=== PATIENT | female | born 1980 | race Caucasian/White ===

== ENCOUNTER 2021-06-24 15:52 | Emergency (ER) | payer OTHER, SELFPAY ==
--- NOTE | 2021-06-24 16:16 | ED.URI ---
HPI - URI/Sore Throat General Chief Complaint: Upper Respiratory Infection Stated Complaint: fever, sore throat Time Seen by Provider: 06/24/21 16:15 Source: patient and RN notes reviewed Mode of arrival: ambulatory Limitations: no limitations History of Present Illness HPI Narrative: Jocelyn is a 40-year-old female patient who ambulated into the [facility]. Patient states she has a 3-day history of sore throat, headache, neck pain, and fatigue. Patient has been using ibuprofen [id number] and drinking Gatorade. Patient states she has had a fever of 101.2 at home. MD elicited complaint: sore throat Related Data Home Medications Medication Instructions Recorded Confirmed clonazepam 1 mg PO BID 06/24/21 06/24/21 cyanocobalamin (vitamin B-12) See Rx Instructions .ROUTE .COMPLEX 06/24/21 06/24/21 mirtazapine 15 mg PO DAILY 06/24/21 06/24/21 Allergies Allergy/AdvReac Type Severity Reaction Status Date / Time acetaminophen AdvReac Nausea and Verified 06/24/21 16:16 [From Darvocet-N] Vomiting propoxyphene AdvReac Nausea and Verified 06/24/21 16:16 [From Darvocet-N] Vomiting Review of Systems Review of Systems: CONSTITUTIONAL: Denies body aches, + fever,denies chills, or sweats + fatigue EYES: Denies visual changes, redness, or discharge. ENT: Denies rhinorrhea, congestion, sore throat, or otalgia. CARDIOVASCULAR: Denies chest pain, palpitations, or edema. RESPIRATORY: Denies cough or dyspnea. GASTROINTESTINAL: Denies abdominal pain, nausea, vomiting, or diarrhea. GENITOURINARY: Denies dysuria or hematuria. SKIN: Denies rash, itching, or wounds. MUSCULOSKELETAL: Denies back pain, joint pain, or myalgia. NEUROLOGIC: Denies headache, numbness, tingling, or weakness. PSYCH: Denies depression or anxiety. All systems reviewed & are unremarkable except as noted in HPI and below Exam Narrative: GENERAL: Well-appearing, well-nourished, and in no acute distress. HEAD: Normocephalic, atraumatic. EYES: EOMI. No redness or drainage. Conjunctivae normal. ENT: Mucous membranes pink and moist. Nares clear. No rhinorrhea. TMs normal bilaterally. Posterior pharynx is erythemic, moderate edema without exudate. . Uvula midline. NECK: Normal AROM. Supple. Anterior cervical lymphadenopathy bilaterally CHEST: No respiratory distress. Clear to auscultation. MUSCULOSKELETAL: No bony tenderness. EXTREMITIES: Normal range of motion. No edema. SKIN: Warm, dry, no rash. Capillary refill normal. Normal skin turgor. NEURO: No focal deficits. Alert and oriented x3. Gait steady. PSYCH: Normal affect. No signs of depression or anxiety. Course Vital Signs Vital signs: Vital Signs Temperature 36.7 C 06/24/21 16:18 Pulse Rate 18 L 06/24/21 16:18 Respiratory Rate 18 06/24/21 16:18 Blood Pressure 113/76 06/24/21 16:18 Pulse Oximetry 100 06/24/21 16:18 Temperature 36.7 C 06/24/21 16:18 Pulse Rate 18 L 06/24/21 16:18 Respiratory Rate 18 06/24/21 16:18 Blood Pressure 113/76 06/24/21 16:18 Pulse Oximetry 100 06/24/21 16:18 Reviewed MDM - URI/Sore Throat MDM Narrative Medical decision making narrative: Viral pharyngitis. Posterior oropharynx is erythemic with moderate edema without exudate. Patient has no other symptoms except fever, headache, and neck pain. Rapid strep is negative. Throat culture was sent to lab. Patient will be notified if 3 days of antibiotics are needed. Patient to follow-up with her primary care physician in 3 to 5 days for continued symptoms. Go to the emergency department immediately for inability to swallow saliva or liquids. Differential Diagnosis Differential diagnosis: Likely upper respiratory infection, sinusitis, viral infection and pharyngitis Medical Records Attestation: I reviewed the patient's medical records. Lab Data Attestation: I reviewed the patient's lab results. Labs: Lab Results 06/24/21 Range/Units 16:15 POC SARS CoV-2 Ag Negative
[2021-06-24 16:18] VITALS: BP 113/76; PULSE 18; RESP 18; TEMP 36.7; O2SAT 100
== END 2021-06-24 16:40 | disposition home or self-care (01) ==
PROVIDERS: Emergency Provider Nurse Practitioner Family
DX: J02.9 Acute pharyngitis, unspecified (principal); Z20.822 Contact with and (suspected) exposure to COVID-19
CPT/HCPCS: 87081; 87426; 87880; 99213; C9803; G0463

== ENCOUNTER 2022-09-01 08:03 | Emergency (ER) | payer OTHER, SELFPAY ==
[2022-09-01 08:11] VITALS: BP 122/77; PULSE 75; RESP 16; TEMP 37.1; O2SAT 100
[2022-09-01 08:16] VITALS: BP 122/77; PULSE 75; RESP 16; TEMP 37.1; O2SAT 100
--- NOTE | 2022-09-01 08:28 | ED.URI ---
HPI - URI/Sore Throat General Chief Complaint: Upper Respiratory Infection Stated Complaint: cold/flu/covid Time Seen by Provider: 09/01/22 08:20 Source: patient and RN notes reviewed Mode of arrival: ambulatory Limitations: no limitations History of Present Illness HPI Narrative: 42-year-old female presented for complaint of headache, body aches, sinus pressure/congestion, cough, fever/chills. onset 2 days ago. Endorses temperature up to 102. Endorses fatigue, slept all day yesterday. She denies shortness of breath, wheezing, vomiting, diarrhea. She is taking Tylenol and ibuprofen for symptoms. Endorses sick contacts. MD elicited complaint: cough Related Data Home Medications Medication Instructions Recorded Confirmed clonazepam 1 mg tablet 1 mg PO BID 06/24/21 09/01/22 cyanocobalamin (vitamin B-12) See Rx Instructions .Route .COMPLEX 06/24/21 09/01/22 1,000 mcg/mL injection solution mirtazapine 15 mg tablet 15 mg PO DAILY 06/24/21 09/01/22 Allergies Allergy/AdvReac Type Severity Reaction Status Date / Time acetaminophen AdvReac Nausea and Verified 06/24/21 16:16 [From Darvocet-N] Vomiting propoxyphene AdvReac Nausea and Verified 06/24/21 16:16 [From Darvocet-N] Vomiting Review of Systems Review of Systems: CONSTITUTIONAL: Endorses malaise, chills, sweats, fever EYES: Denies visual changes, redness, or discharge ENT: Reports rhinorrhea, congestion, sinus pain, sore throat CARDIOVASCULAR: Denies chest pain, palpitations, edema RESPIRATORY: Reports cough, post nasal drainage. Denies dyspnea GASTROINTESTINAL: Denies abdominal pain, vomiting, diarrhea SKIN: Denies rash or itching MUSCULOSKELETAL: Endorses myalgia Exam Narrative: GENERAL: Ill-appearing, nontoxic EYES: PERRLA, conjunctivae clear ENT: Mucous membranes moist. TM pearly shane with dull light reflex bilaterally; no tragal tenderness. Oropharynx normal without lesions or exudate, no drooling, no hoarseness, no trismus, uvula midline. CHEST: Clear to auscultation, breath sounds equal. No wheezing, rhonchi, rales, or stridor. No respiratory distress, speaks in full sentences. HEART: Regular rate and rhythm. No murmur heard. SKIN: Warm, dry, no rash. NEURO: Alert and oriented x3. PSYCH: Normal mood and affect Course Course Emergency Course: Patient is aware of diagnosis, understands and agrees to treatment plan. Anticipatory guidance given. Patient agrees to follow-up as directed and is aware of reasons to seek care at the emergency department. Portions of this record may have been created with voice recognition software Level of Care: Express Care Visit Vital Signs Vital signs: Vital Signs Temperature 98.7 F 09/01/22 08:11 Pulse Rate 75 09/01/22 08:11 Respiratory Rate 16 09/01/22 08:11 Blood Pressure 122/77 09/01/22 08:11 Pulse Oximetry 100 09/01/22 08:11 Oxygen Delivery Room Air 09/01/22 08:11 Temperature 98.7 F 09/01/22 08:16 Pulse Rate 75 09/01/22 08:16 Respiratory Rate 16 09/01/22 08:16 Blood Pressure 122/77 09/01/22 08:16 Pulse Oximetry 100 09/01/22 08:16 Oxygen Delivery Room Air 09/01/22 08:16 reviewed MDM - URI/Sore Throat MDM Narrative Medical decision making narrative: result of strep covid and flu reviewed with pt. Advised supportive measures and signs/symptoms to go to the ER. Pt is appropriate for outpt treatment and f/u. Differential Diagnosis Differential diagnosis: Likely upper respiratory infection, sinusitis and viral infection Discharge Plan Discharge Clinical Impression: Viral infection Patient Disposition: Home, Self-Care Condition: Stable Instructions: Viral Syndrome (ED) Additional Instructions: Flu, COVID, and Rapid strep swab were negative today You will be notified in a few days if the culture comes back positive for strep, and appropriate antibiotics will be called in at that time. if symptoms are due to a viral illness, it is not
== END 2022-09-01 08:58 | disposition home or self-care (01) ==
PROVIDERS: Emergency Provider Nurse Practitioner Family
DX: B34.9 Viral infection, unspecified (principal); Z20.822 Contact with and (suspected) exposure to COVID-19
CPT/HCPCS: 87081; 87426; 87804; 87880; 99213; C9803; G0463

== ENCOUNTER 2024-02-22 17:45 | Emergency (ER) | payer OTHER, SELFPAY ==
[2024-02-22 17:56] VITALS: BP 119/80; PULSE 91; RESP 20; TEMP 36.6; O2SAT 99
--- NOTE | 2024-02-22 18:13 | ED.FEMALEGU ---
HPI - Female Genitourinary General Chief complaint: Urogenital-Female Stated complaint: Poss UTI Source: patient and RN notes reviewed Mode of arrival: ambulatory Limitations: no limitations History of Present Illness HPI Narrative: 43 y/o female presented for c/o burning with urination, frequency, urgency, blood in urine, and voiding small amounts. States she has constant bladder pressure and spasm sensation. Onset 2 days. Took AZO, drinking cranberry juice, and increased water intake. denies nausea, vomiting, abdominal pain, flank pain, constipation, diarrhea, fevers or chills. Related Data Allergies Allergy/AdvReac Type Severity Reaction Status Date / Time acetaminophen AdvReac Nausea and Verified 02/22/24 17:55 [From Darvocet-N] Vomiting propoxyphene AdvReac Nausea and Verified 02/22/24 17:55 [From Darvocet-N] Vomiting Review of Systems Review of Systems: CONSTITUTIONAL: Denies body aches, fever, chills, or sweats. CARDIOVASCULAR: Denies chest pain, palpitations, or edema. RESPIRATORY: Denies cough or dyspnea. GASTROINTESTINAL: Denies abdominal pain, nausea, vomiting, or diarrhea. GENITOURINARY: Reports dysuria, frequency, urgency, hematuria, denies flank pain SKIN: Denies rash, itching, or wounds. MUSCULOSKELETAL: Denies back pain or myalgia. [facility] Surgical History Surgical History (Updated 02/22/24 @ 18:24 by Kyra Sanchez, [employer]) History of hysterectomy Comments At time of signature, I have reviewed and agree with nursing past medical, surgical, social and family history unless otherwise noted. Please see nursing chart for further information. There is no relevant family history pertinent to the presenting complaint Exam Narrative: GENERAL: mildly ill-appearing; appears in some discomfort ENT: Mucous membranes pink and moist. NECK: Normal AROM. Supple. CHEST: No respiratory distress. Clear to auscultation. HEART: Regular rate and rhythm. ABDOMEN: Soft, nondistended, normal active bowel sounds. Mild suprapubic tenderness with palpation. No CVA tenderness SKIN: Warm, dry, no rash. NEURO: No focal deficits. Alert and oriented x3. Gait steady. PSYCH: Normal affect. Course Course Emergency Course: Patient is aware of diagnosis, understands and agrees to treatment plan. Anticipatory guidance given. Patient agrees to follow-up as directed and is aware of reasons to seek care at the emergency department. Portions of this record may have been created with voice recognition software Level of Care: Express Care Visit Vital Signs Vital signs: Vital Signs Temperature 97.8 F 02/22/24 17:56 Pulse Rate 91 02/22/24 17:56 Respiratory Rate 20 02/22/24 17:56 Blood Pressure 119/80 02/22/24 17:56 Pulse Oximetry 99 02/22/24 17:56 Oxygen Delivery Room Air 02/22/24 17:56 Temperature 97.8 F 02/22/24 17:56 Pulse Rate 91 02/22/24 17:56 Respiratory Rate 20 02/22/24 17:56 Blood Pressure 119/80 02/22/24 17:56 Pulse Oximetry 99 02/22/24 17:56 Oxygen Delivery Room Air 02/22/24 17:56 Reviewed MDM - Female Genitourinary MDM Narrative Medical decision making narrative: Discussed physical exam findings and urine dip result. Will culture.. Advised supportive measures and signs/symptoms to go to the ER. Pt is appropriate for outpt treatment and f/u. Differential Diagnosis Differential diagnosis: Likely urinary tract infection, cystitis and other Discharge Plan Discharge Clinical Impression: Urinary tract infection Patient Disposition: Home, Self-Care Condition: Stable Instructions: Antibiotic Form, Urinary Tract Infection in Women (ED) Additional Instructions: Take the antibiotic as prescribed The urine will be sent of for a culture to identify what type of bacteria is causing your infection. If the culture shows that the antibiotic will not get rid of your infection, you will be notified and a new antibiotic will be called in for
[2024-02-22 18:24] LABS: EDUAAPPEAR Cloudy; EDUABILI 2+; EDUABLOOD 3+; EDUACOLOR1 Orange; EDUAGLUCOSE 1+; EDUAKETONE 1+; EDUALEUKO 3+; EDUANITRATE Positive; EDUAPH 6.5; EDUAPROTEIN 3+
== END 2024-02-22 18:28 | disposition home or self-care (01) ==
PROVIDERS: Emergency Provider Nurse Practitioner Family
DX: N39.0 Urinary tract infection, site not specified (principal)
CPT/HCPCS: 81003; 87086; 99213; G0463

== ENCOUNTER 2024-05-17 18:27 | Emergency (ER) | payer OTHER, SELFPAY ==
[2024-05-17 18:31] VITALS: BP 113/70; PULSE 86; RESP 16; TEMP 36.8; O2SAT 99
--- NOTE | 2024-05-17 18:48 | ED.URI ---
HPI - URI/Sore Throat General Chief Complaint: Upper Respiratory Infection Stated Complaint: poss sinus infection Time Seen by Provider: 05/17/24 18:48 Source: patient Mode of arrival: ambulatory Limitations: no limitations History of Present Illness HPI Narrative: 43-year-old female presents with complaint of sinus pressure, sinus headaches, nasal congestion, postnasal drainage for approximately 12 days. Reports fatigue, low-grade fever for the past 2 days. Patient concerned for bacterial sinus infection. All systems reviewed and negative except as noted above. Related Data Home Medications Medication Instructions Recorded Confirmed clonazepam 1 mg tablet mg 05/17/24 cyanocobalamin (vitamin B-12) mcg 05/17/24 1,000 mcg/mL injection solution mirtazapine 15 mg tablet mg 05/17/24 Allergies Allergy/AdvReac Type Severity Reaction Status Date / Time acetaminophen AdvReac Nausea and Verified 05/17/24 18:39 [From Darvocet-N] Vomiting propoxyphene AdvReac Nausea and Verified 05/17/24 18:39 [From Darvocet-N] Vomiting Review of Systems Review of Systems: CONSTITUTIONAL: Denies fever, chills, or sweats. EYES: Denies visual changes, redness, or discharge. ENT: Reports rhinorrhea, congestion. Denies sore throat, or otalgia. CARDIOVASCULAR: Denies chest pain, palpitations, or edema. RESPIRATORY: Denies cough or dyspnea. GASTROINTESTINAL: Denies abdominal pain, nausea, vomiting, or diarrhea. GENITOURINARY: Denies dysuria or hematuria. SKIN: Denies rash or itching. MUSCULOSKELETAL: Denies back pain, joint pain, or myalgia. NEUROLOGIC: Denies headache, numbness, or weakness. PSYCHIATRIC: Denies anxiety or depression. All other systems reviewed are negative, except as documented in HPI. PMFSH Surgical History Surgical History (Updated 02/22/24 @ 18:24 by Kyra Sanchez APRN) History of hysterectomy Comments At time of signature, agree with nursing past medical, surgical, social and family history. There is no relevant family history pertinent to the presenting complaint. Exam Narrative: GENERAL: This is a well-nourished, well-developed patient, in no apparent distress. HEAD: normocephalic, atraumatic. EYES: PERRL. Sclera clear/white. Vision is grossly intact. EARS: External ears normal, auditory canals clear and without drainage, TMs normal without perforation. Hearing grossly intact. NOSE: External nose normal with purulent nasal drainage, moderate congestion, erythema and swelling to bilateral nares. Bilateral frontal, maxillary and ethmoid sinus tenderness on palpation. THROAT: Mucous membranes moist, posterior pharynx clear. NECK: Neck supple, non-tender without lymphadenopathy, masses or thyromegaly. CARDIOVASCULAR: Regular rate and rhythm without murmurs, gallops, or rubs. RESPIRATORY: Clear to auscultation. Breath sounds equal bilaterally. No wheezes, rales, or rhonchi. SKIN: warm, Dry, intact with no suspicious lesions or rash, good texture and turgor. NEURO: awake, alert, and oriented to person, place and time. There were no obvious focal neurologic abnormalities. EXTREMITIES: No joint tenderness, effusion, or edema noted. Course Course Level of Care: Express Care Visit Vital Signs Vital signs: Vital Signs Temperature 36.8 C 05/17/24 18:31 Pulse Rate 86 05/17/24 18:31 Respiratory Rate 16 05/17/24 18:31 Blood Pressure 113/70 05/17/24 18:31 Pulse Oximetry 99 05/17/24 18:31 Oxygen Delivery Room Air 05/17/24 18:31 Temperature 36.8 C 05/17/24 18:31 Pulse Rate 86 05/17/24 18:31 Respiratory Rate 16 05/17/24 18:31 Blood Pressure 113/70 05/17/24 18:31 Pulse Oximetry 99 05/17/24 18:31 Oxygen Delivery Room Air 05/17/24 18:31 Reviewed MDM - URI/Sore Throat MDM Narrative Medical decision making narrative: will treat patient for bacterial sinusitis due to duration of symptoms and exam findings. Patient is aware of diagno
== END 2024-05-17 19:00 | disposition home or self-care (01) ==
PROVIDERS: Emergency Provider Nurse Practitioner Family
DX: J01.90 Acute sinusitis, unspecified (principal)
CPT/HCPCS: 99213; G0463

== ENCOUNTER 2024-06-13 14:35 | Emergency (ER) | payer OTHER, SELFPAY ==
[2024-06-13 14:50] VITALS: BP 111/71; PULSE 83; RESP 20; TEMP 37.1; O2SAT 97
[2024-06-13 16:05] LABS: EDSTREPNEGPOS1 Negative (Negative)
--- NOTE | 2024-06-13 21:56 | ED.URI ---
HPI - URI/Sore Throat General Chief Complaint: Upper Respiratory Infection Stated Complaint: fever/chills/nausea/throat Time Seen by Provider: 06/13/24 14:54 Source: patient, RN notes reviewed and old records reviewed Mode of arrival: ambulatory Limitations: no limitations History of Present Illness HPI Narrative: 43-year-old female to Express Care with complaint of fever up to 100.8?, sore throat, lethargy, nausea for 3 days. Patient has attempted to treat at home with [place] cold and flu as well as ibuprofen. Patient denies shortness of breath, difficulty swallowing, vomiting, diarrhea, urinary changes, appetite changes, known sick exposure , pertinent medical history. Patient able to tolerate fluids by mouth. Patient resting in exam room in no acute distress. Respirations even and nonlabored. Patient able to speak in complete sentences without difficulty. Related Data Allergies Allergy/AdvReac Type Severity Reaction Status Date / Time acetaminophen AdvReac Nausea and Verified 06/13/24 15:04 [From Darvocet-N] Vomiting propoxyphene AdvReac Nausea and Verified 06/13/24 15:04 [From Darvocet-N] Vomiting Review of Systems Review of Systems: All systems reviewed & are unremarkable except as noted in HPI and below Constitutional: Constitutional: Reports as per HPI, Reports fatigue and Reports fever(s) Eyes: Eyes: Reports no additional eye complaints ENT: Reports as per HPI and Reports sore throat Cardiovascular: Cardiovascular: Reports no additional cardiovascular complaints, Denies chest pain and Denies dyspnea Respiratory: Respiratory: Reports no additional respiratory complaints, Denies cough and Denies dyspnea Musculoskeletal: Musculoskeletal: Reports no additional musculoskeletal complaints Neurologic: Reports system reviewed and no additional complaints, except as documented Psychiatric: Psychiatric: Reports no additional psychiatric complaints PMFSH Surgical History Surgical History History of hysterectomy Comments At the time of my signature, I reviewed and agree with the nursing past medical, surgical, social, and family history. There is no relevant family history pertinent to the patient complaint. Exam Const: General: cooperative, healthy appearing, no acute distress, well developed, alert, tired appearing, well groomed and well nourished Nutritional Appearance: well nourished Orientation/consciousness: patient oriented x3 Limitations: no limitations HENMT: Head: normal to inspection Ears: external ears normal Face/Nose/Sinus: Normal external nose present, Normal nares present, normal facial exam, No erythema and No edema Face and sinus: normal facial exam, no erythema and no edema Mouth: Yes Normal oral and palatal mucosa present Throat: posterior oropharynx abnormal erythema Eyes: General: appearance normal, both eyes and all related structures Neck: Neck: normal visual inspection, full ROM and no meningeal signs Lymphatic: no lymphadenopathy noted and no lymphedema noted Chest: Chest palpation & inspection: normal inspection of the chest Resp: Effort & Inspection: normal respiratory effort and able to speak in complete sentences Auscultation: clear to auscultation bilaterally Cardio: Jugular venous distension: no JVD Rate: regular rate Rhythm: regular rhythm Back/Spine/Pelvis: Cervical Spine: cervical ROM normal Skin: General skin exam: normal color, no rashes or lesions noted and turgor normal Neuro: General: patient oriented x3, gait normal, moves all extremities and no meningeal signs Speech: normal speech Gait exam (Neuro): Normal gait present Extrem: General: normal to inspection, full ROM and capillary refill normal Psych: Appearance: grossly normal and well kempt Course Course Emergency Course: Some parts of this dictation were generated by voice recognition software and may contain typographical and/or grammatical inaccuracies. Level of Care: Express Care Visit Vital Signs Vital signs: Vital Signs Temperature 37.1 C 06/13/24 14:50 Pulse Rate 83 06/13/24 14:50 Respiratory Rate 20 06/13/24 14:50 Blood Pressure 111/71 06/13/24 14:50 Pulse Oximetry 97 06/13/24 14:50 Oxygen Delivery Room Air 06/13/24 14:50 Temperature 37.1 C 06/13/24 14:50 Pulse Rate 83 06/13/24 14:50 Respiratory Rate 20 06/13/24 14:50 Blood Pressure 111/71 06/13/24 14:50 Pulse Oximetry 97 06/13/24 14:50 Oxygen Delivery Room Air 06/13/24 14:50 reviewed MDM - URI/Sore Throat MDM Narrative Medical decision making narrative: 43-year-old female to Express Care with complaint of fever up to 100.8?, sore throat, lethargy, nausea for 3 days. Patient has attempted to treat at home with [place] cold and flu as well as ibuprofen. Patient denies shortness of breath, difficulty swallowing, vomiting, diarrhea, urinary changes, appetite changes, known sick exposure , pertinent medical history. Patient able to tolerate fluids by mouth. Patient resting in exam room in no acute distress. Respirations even and nonlabored. Patient able to speak in complete sentences without difficulty. On exam, posterior oropharynx erythematous. Exam otherwise unremarkable. Patient tested negative for strep in clinic. Culture sent. Patient is sitting comfortably in exam room nontoxic in appearance. Patient appropriate for outpatient treatment and follow-up. Discharge instructions reviewed with patient, as well as provided in writing per nursing staff. The instructions also include specific and strict return/GO TO THE ER as well as f/u information. All questions have been answered, and the patient deny any further questions with discharge and discharge plan. Some parts of this dictation were generated by voice recognition software and may contain typographical and/or grammatical inaccuracies. Differential Diagnosis Differential diagnosis: Likely upper respiratory infection, croup, otitis media, sinusitis, viral infection, bronchitis, influenza and pharyngitis Lab Data Labs: Lab Results 06/13/24 Range/Units 14:55 POC Grp A Strep Screen Negative (Negative) Discharge Plan Discharge Clinical Impression: Viral infection Patient Disposition: Home, Self-Care Condition: Stable Instructions: Viral Syndrome (ED) Additional Instructions: Your rapid strep swab was negative today at [facility]. A throat culture will be sent to the laboratory for further testing. If the test is positive, you will receive a phone call within 48 hours and an appropriate antibiotic will be initiated at that time. Your Covid test is also pending can take up to 72 hours. Your symptoms are likely due to a viral illness, which is not treated with antibiotics. Viral symptoms can be present for up to a few weeks. -Alternate Tylenol and Motrin per package directions for fever or pain. -Antihistamine medication such as Benadryl at night and Zyrtec/Claritin/Leslee during the day can help improve symptoms. -Use Flonase twice a day for 5 days then daily to help reduce the inflammation and dry up your sinuses. -You can also use Sudafed or Mucinex. Be sure to drink plenty of water with these medications at least 8 ounces with every dose and it is important to drink 8 to 10 glasses of water per day. Water is a natural decongestant -Eat and drink things that are easy to swallow, like tea or soup, or popsicles. -Oral rinses such as: Salt water gargles and/or may use topical anesthetic (eg. Chloraseptic spray) or lozenges to relieve dryness or throat pain). -Frequent hand washing or hand talent acquisition consultant is one of the best ways to prevent spread of infection. -Using a vaporizer or humidifier at night will also help thin secretions and help with coughing up phlegm. -Follow up with primary care provider in 2-3 days if condition is not improving; or seek ER visit if you have trouble breathing, cannot drink enough fluids, have muffled voice, difficulty opening your mouth, or severe swelling. Prescriptions: No Action fluticasone propionate [Flonase Allergy Relief] 50 mcg/actuation spray,suspension 1 spray intranasal BID Qty: 16 0RF Rx Instructions: administer into each nostril Follow-up/Referrals: PHYSICIAN NOT ON STAFF,NONSTAFF [Primary Care Provider] - Stand Alone Forms: Work/School Release IP
== END 2024-06-13 16:05 | disposition home or self-care (01) ==
PROVIDERS: Emergency Provider Nurse Practitioner Family
DX: B34.9 Viral infection, unspecified (principal)
CPT/HCPCS: 87081; 87880; 99213; G0463

== ENCOUNTER 2024-07-11 15:34 | Emergency (ER) | payer OTHER, SELFPAY ==
[2024-07-11 15:45] VITALS: BP 137/76; PULSE 72; RESP 16; TEMP 36.8; O2SAT 100
--- NOTE | 2024-07-11 16:41 | ED.URI ---
HPI - URI/Sore Throat General Chief Complaint: Upper Respiratory Infection Stated Complaint: Congestion Time Seen by Provider: 07/11/24 16:42 Source: patient, RN notes reviewed and old records reviewed Mode of arrival: ambulatory Limitations: no limitations History of Present Illness HPI Narrative: 43-year-old female to Express Care with complaint of sinus pressure and discomfort for 2 weeks. Patient states it started to get better 4 days ago then became acutely worse 2 days ago. Patient has attempted to treat with a variety of gwga-ewa-nowhkkx medications with little relief. Patient able to tolerate fluids by mouth. Patient resting comfortably in exam room in no acute distress. Respirations even and nonlabored. Related Data Home Medications Medication Instructions Recorded Confirmed cyanocobalamin (vitamin B-12) mcg 07/11/24 1,000 mcg/mL injection solution Allergies Allergy/AdvReac Type Severity Reaction Status Date / Time acetaminophen AdvReac Nausea and Verified 06/13/24 15:04 [From Darvocet-N] Vomiting propoxyphene AdvReac Nausea and Verified 06/13/24 15:04 [From Darvocet-N] Vomiting Review of Systems Review of Systems: All systems reviewed & are unremarkable except as noted in HPI and below Constitutional: Constitutional: Reports no additional constitutional complaints Eyes: Eyes: Reports no additional eye complaints ENT: Reports as per HPI, Reports nasal congestion, Reports sinus pain and Reports sinus pressure Cardiovascular: Cardiovascular: Reports no additional cardiovascular complaints, Denies chest pain and Denies dyspnea Respiratory: Respiratory: Reports no additional respiratory complaints, Denies cough and Denies dyspnea Musculoskeletal: Musculoskeletal: Reports no additional musculoskeletal complaints Neurologic: Reports system reviewed and no additional complaints, except as documented Psychiatric: Psychiatric: Reports no additional psychiatric complaints PMFSH Surgical History Surgical History History of hysterectomy Comments At the time of my signature, I reviewed and agree with the nursing past medical, surgical, social, and family history. There is no relevant family history pertinent to the patient complaint. Exam Const: General: cooperative, no acute distress, alert, tired appearing and well nourished Nutritional Appearance: well nourished Orientation/consciousness: patient oriented x3 Limitations: no limitations HENMT: Head: normal to inspection Ears: external ears normal and TM abnormal with fluid behind the TM bilateral Face/Nose/Sinus: Normal external nose present, Normal nares present, normal facial exam, No erythema, No edema and sinus tenderness Face and sinus: normal facial exam, no erythema and no edema Mouth: Yes Normal oral and palatal mucosa present Throat: postnasal drainage ( Purulent) Eyes: General: appearance normal, both eyes and all related structures Neck: Neck: normal visual inspection, full ROM and no meningeal signs Lymphatic: no lymphadenopathy noted and no lymphedema noted Chest: Chest palpation & inspection: normal inspection of the chest Resp: Effort & Inspection: normal respiratory effort and able to speak in complete sentences Auscultation: clear to auscultation bilaterally Cardio: Jugular venous distension: no JVD Rate: regular rate Rhythm: regular rhythm Back/Spine/Pelvis: Cervical Spine: cervical ROM normal Skin: General skin exam: normal color, no rashes or lesions noted and turgor normal Neuro: General: patient oriented x3, gait normal, moves all extremities and no meningeal signs Speech: normal speech Gait exam (Neuro): Normal gait present Extrem: General: normal to inspection, full ROM and capillary refill normal Psych: Appearance: grossly normal and well kempt Course Course Emergency Course: Some parts of this dictation were generated by voice recognition software and may contain typographical and/or grammatical inaccuracies. Level of Care: Express Care Visit Vital Signs Vital signs: Vital Signs Temperature 36.8 C 07/11/24 15:45 Pulse Rate 72 07/11/24 15:45 Respiratory Rate 16 07/11/24 15:45 Blood Pressure 137/76 07/11/24 15:45 Pulse Oximetry 100 07/11/24 15:45 Oxygen Delivery Room Air 07/11/24 15:45 Temperature 36.8 C 07/11/24 15:45 Pulse Rate 72 07/11/24 15:45 Respiratory Rate 16 07/11/24 15:45 Blood Pressure 137/76 07/11/24 15:45 Pulse Oximetry 100 07/11/24 15:45 Oxygen Delivery Room Air 07/11/24 15:45 reviewed MDM - URI/Sore Throat MDM Narrative Medical decision making narrative: 43-year-old female to Express Care with complaint of sinus pressure and discomfort for 2 weeks. Patient states it started to get better 4 days ago then became acutely worse 2 days ago. Patient has attempted to treat with a variety of zhao-[id number] medications with little relief. Patient able to tolerate fluids by mouth. Patient resting comfortably in exam room in no acute distress. Respirations even and nonlabored. on exam, posterior oropharynx with purulent drainage. Bilateral TMs with purulent fluid. Sinus tenderness present. Patient is sitting comfortably in exam room nontoxic in appearance. Patient appropriate for outpatient treatment and follow-up. Discharge instructions reviewed with patient, as well as provided in writing per nursing staff. The instructions also include specific and strict return/GO TO THE ER as well as f/u information. All questions have been answered, and the patient deny any further questions with discharge and discharge plan. Some parts of this dictation were generated by voice recognition software and may contain typographical and/or grammatical inaccuracies. Differential Diagnosis Differential diagnosis: Likely upper respiratory infection, croup, otitis media, sinusitis, viral infection, bronchitis, influenza and pharyngitis Discharge Plan Discharge Clinical Impression: Bacterial sinusitis Patient Disposition: Home, Self-Care Condition: Stable Instructions: Sinusitis (ED) Additional Instructions: -Alternate Tylenol and Motrin per package directions for fever or pain. -Antihistamine medication such as Benadryl at night and Zyrtec/Claritin/Leslee during the day can help improve symptoms. -Use Flonase twice a day for 5 days then daily to help reduce the inflammation and dry up your sinuses. -You can also use Sudafed or Mucinex. Be sure to drink plenty of water with these medications at least 8 ounces with every dose and it is important to drink 8 to 10 glasses of water per day. Water is a natural decongestant -Eat and drink things that are easy to swallow, like tea or soup, or popsicles. -Oral rinses such as: Salt water gargles and/or may use topical anesthetic (eg. Chloraseptic spray) or lozenges to relieve dryness or throat pain). -Frequent hand washing or hand line installation supervisor is one of the best ways to prevent spread of infection. -Using a vaporizer or humidifier at night will also help thin secretions and help with coughing up phlegm. -Follow up with primary care provider in 2-3 days if condition is not improving; or seek ER visit if you have trouble breathing, cannot drink enough fluids, have muffled voice, difficulty opening your mouth, or severe swelling. Prescriptions: New azithromycin 250 mg tablet 250 mg PO DAILY Qty: 6 0RF Rx Instructions: 250 mg orally. Take TWO tablets today, then one tablet daily for 4 days. prednisone 20 mg tablet See Rx Instructions .ROUTE .COMPLEX Qty: 9 0RF Rx Instructions: Take 40mg x3 days, 20mg x3 days No Action cyanocobalamin (vitamin B-12) 1,000 mcg/mL solution Follow-up/Referrals: Olivia,MD Paola [Primary Care Provider] -
== END 2024-07-11 16:55 | disposition home or self-care (01) ==
PROVIDERS: Emergency Provider Nurse Practitioner Family; PCP Family Medicine
DX: J32.9 Chronic sinusitis, unspecified (principal)
CPT/HCPCS: 99213; G0463

== ENCOUNTER 2024-09-06 19:27 | Emergency (ER) | payer OTHER, SELFPAY ==
[2024-09-06 19:33] VITALS: BP 113/76; PULSE 77; RESP 16; TEMP 36.6; O2SAT 100
--- NOTE | 2024-09-06 20:07 | ED.GENADULT ---
HPI - General Adult General Chief complaint: Upper Respiratory Infection Stated complaint: Fever /Sore Throat Source: patient Mode of arrival: ambulatory Limitations: no limitations History of Present Illness HPI narrative: Patient presents for evaluation of sore throat. Symptom onset this morning. She feels like she is swallowing razor blades. She also reports generalized body aches and overall not feeling well. No fever, nausea, vomiting, diarrhea, cough, shortness of breath. Her sons have been sick as of late. She has a history of strep and this feels similar. She does vape from time to time. Related Data Home Medications ?Medication ?Instructions ?Recorded ?Confirmed ?Last Taken ?Type cyanocobalamin (vitamin B-12) mcg 07/11/24 Unknown History 1,000 mcg/mL injection solution Allergies Allergy/AdvReac Type Severity Reaction Status Date / Time acetaminophen (From AdvReac Nausea and Verified 06/13/24 15:04 Darvocet-N) Vomiting propoxyphene (From AdvReac Nausea and Verified 06/13/24 15:04 Darvocet-N) Vomiting Review of Systems Review of Systems: CONSTITUTIONAL: Reports generally not feeling well. Denies fever, chills, or sweats. EYES: Denies visual changes, redness, or discharge. ENT: Reports sore throat. Denies rhinorrhea, congestion, or otalgia. CARDIOVASCULAR: Denies chest pain, palpitations, or edema. RESPIRATORY: Denies cough or dyspnea. GASTROINTESTINAL: Denies abdominal pain, nausea, vomiting, or diarrhea. GENITOURINARY: Denies dysuria or hematuria. SKIN: Denies rash or itching. MUSCULOSKELETAL: Reports generalized body aches NEUROLOGIC: Denies headache, numbness, dizziness, or weakness. PSYCHIATRIC: Denies anxiety or depression. [facility] Past Medical History Medical History No pertinent past medical history Surgical History Surgical History History of hysterectomy Family History Family History Mother Family history non-contributory Social History Social History Smoking status: Current every day smoker Tobacco type: e-cigarettes/vaping Substance use: never Living arrangements: with family Gender identity (if verbalized by the patient): Female Spiritual care concerns: No Exam Narrative: GENERAL: Well-appearing, well-nourished, and in no acute distress. HEAD: Normocephalic, atraumatic. EYES: PERRLA and EOMI. ENT: Nares clear, no rhinorrhea or epistaxis. Mucous membranes moist. Posterior pharyngeal erythema without exudate. Uvula is midline.. Bilateral TMs pearly shane nonbulging NECK: Supple. No adenopathy or masses. No carotid bruits or JVD CHEST: Clear to auscultation. No respiratory distress. No wheezes rales or rhonchi HEART: Regular rate and rhythm. No murmur heard. Normal peripheral pulses. ABDOMEN: Soft, nontender, nondistended, normal active bowel sounds. EXTREMITIES: Normal range of motion. No edema. SKIN: Warm, dry, no rash. NEURO: No focal deficits. Alert and oriented x3. PSYCH: Normal mood and affect. Course Course Emergency Course: This is a 44-year-old female who presented for evaluation of sore throat. She has a history of strep and this feels similar. COVID, strep, influenza were all negative. Through shared decision making opted proceed with antibiotic therapy. Will discharge with Augmentin. Increase hydration. Nrvw-tuv-[id number] agents for symptom management. Follow up with primary provider. Go to the ER for worsening symptoms. Patient in agreement with care Level of Care: Express Care Visit Vital Signs Vital signs: Vital Signs Temperature 36.6 C 09/06/24 19:33 Pulse Rate 77 09/06/24 19:33 Respiratory Rate 16 09/06/24 19:33 Blood Pressure 113/76 09/06/24 19:33 Pulse Oximetry 100 09/06/24 19:33 Oxygen Delivery Room Air 09/06/24 19:33 Temperature 36.6 C 09/06/24 19:33 Pulse Rate 77 09/06/24 19:33 Respiratory Rate 16 09/06/24 19:33 Blood Pressure 113/76 09/06/24 19:33 Pulse Oximetry 100 09/06/24 19:33 Oxygen Delivery Room Air 09/06/24 19:33 Medical Decision Making Vital Signs Vital Signs: Vital Signs Temperature 36.6 C 09/06/24 19:33 Pulse Rate 77 09/06/24 19:33 Respiratory Rate 16 09/06/24 19:33 Blood Pressure 113/76 09/06/24 19:33 Pulse Oximetry 100 09/06/24 19:33 Oxygen Delivery Room Air 09/06/24 19:33 Temperature 36.6 C 09/06/24 19:33 Pulse Rate 77 09/06/24 19:33 Respiratory Rate 16 09/06/24 19:33 Blood Pressure 113/76 09/06/24 19:33 Pulse Oximetry 100 09/06/24 19:33 Oxygen Delivery Room Air 09/06/24 19:33 Lab Data Labs: Lab Results 09/06/24 Range/Units 20:07 POC Influenza A Ag Negative (Negative) POC Influenza B Ag Negative (Negative) POC SARS CoV-2 Ag Negative (Negative) POC Grp A Strep Screen Negative (Negative) Discharge Plan Discharge Clinical Impression: Pharyngitis Patient Disposition: Home, Self-Care Condition: Stable Instructions: Antibiotic Form, Pharyngitis (ED) Patient Language: Guyanese Prescriptions: New amoxicillin-pot clavulanate 875-125 mg tablet 1 tablet PO Q12H Qty: 20 0RF No Action cyanocobalamin (vitamin B-12) 1,000 mcg/mL solution azithromycin 250 mg tablet 250 mg PO DAILY Qty: 6 0RF Rx Instructions: 250 mg orally. Take TWO tablets today, then one tablet daily for 4 days. prednisone 20 mg tablet See Rx Instructions .ROUTE .COMPLEX Qty: 9 0RF Rx Instructions: Take 40mg x3 days, 20mg x3 days Follow-up/Referrals: Paola Villanueva [Other] Stand Alone Forms: Work/School Release IP Time of Disposition: 20:17
[2024-09-06 20:10] LABS: EDCOVIDSCREEN Negative (Negative); EDINFLUASCREEN Negative (Negative); EDINFLUBSCREEN Negative (Negative); EDSTREPNEGPOS1 Negative (Negative)
--- OUTSIDE RECORDS SUMMARY | 2024-09-08 03:34 | XMS_ITS | Clinical Summary ---
Author Organization [facility] Address [address] [place] [id number] Care Team Providers Care Software Developer Mid Level Name Role Phone Paola Baker MD Primary Care Provide r Allergies Active Allergy Reactions Criticality Noted Date Comments Propoxyphene-Acetaminop hen Nausea only,Vomiting Low Reaction: NAUSEA, VOMITING, Oxycodone Vomiting Medium 04/29/2018 Propoxyphene Nausea only,Unknown,Vomitin g Medium 08/05/2019 Medications mirtazapine (REMERON) 15 mg tablet Take 1 tablet (15 mg total) by mouth nightly at bedtime. 08/05/20 20 Active acetaminophen 500 mg capsule Take 2 capsules (1,000 mg total) by mouth every 6 (six) hours as needed for pain for up to 60 doses 60 tablet 08/19/19 23 Active syringe with needle, safety (BD Integra Syringe) 3 mL 25 gauge x 1 syringe USE TO INJECT VITAMIN B12 IN THE MUSCLE DIRECTED 3 each 3 09/14/19 23 Active clonazePAM (KlonoPIN) 1 mg tablet Take 1 tablet (1 mg total) by mouth 2 (two) times a day 03/30/20 23 Active ergocalciferol (VITAMIN D) 50,000 unit capsule Take 1 capsule (50,000 Units total) by mouth once a week 12 capsule 1 06/28/20 23 Active ondansetron ODT (ZOFRAN-ODT) 4 mg disintegrating tablet DISSOLVE 1 TABLET ON THE TONGUE EVERY 8 HOURS NEEDED FOR NAUSEA OR VOMITING 08/18/19 24 Active albuterol HFA (PROVENTIL HFA,VENTOLIN HFA,PROAIR HFA) 90 mcg/actuation inhalerIndications :Viral URI with cough Inhale 2 puffs every 6 (six) hours as needed for wheezing 1 each 08/25/19 24 Active BD Luer-Allan Syringe 3 mL 25 gauge x 1 syringe USE TO INJECT VITAMIN B12 IN THE MUSCLE DIRECTED 3 each 2 02/18/20 24 Active metoprolol XL (TOPROL-XL) 25 mg extended release tablet Take 0.5 tablets (12.5 mg total) by mouth daily 45 tablet 3 03/13/20 24 025 Active cyanocobalamin (Vitamin B-12) 1,000 mcg/mL injection ADMINISTER 1 ML IN THE MUSCLE MONTHLY 3 mL 07/02/20 24 Active valACYclovir (VALTREX) 1 gram tablet TAKE 2 TABLETS(2000 MG) BY MOUTH TWICE DAILY FOR 1 DAY 4 tablet 07/19/20 24 Active amoxicillin 500 mg tablet/capsuleIndi cations:Pharyngiti s, unspecified etiology Take 1 tablet/capsule (500 mg total) by mouth 2 (two) times a day for 10 days 20 tablet/capsu le 07/31/20 24 024 Active Problems Problem Noted Date Diagnosed Date BMI 22.0-22.9, adult 03/13/2024 Tachycardia 03/13/2024 Assessment & Plan (03/13/2024 4:56 PM CDT): New concern Worsening Will get a 48hr holter monitor Will check her electrolytes along with tsh Start metoprolol 12.5mg daily since she is symptomatic F/u in 2 weeks If she is unable to tolerate the metoprolol because of her already borderline blood pressure, will refer to cardiology History of alcohol use disorder 08/25/2022 Assessment & Plan (03/13/2024 4:58 PM CDT): stable Continue with [facility] sob[facility] in group She is doing much better Assessment & Plan (06/29/2023 9:09 AM MANAGER TREASURY): Has not used alcohol since November She has joined a sisters in sob[facility]ety in group She is doing much better Assessment & Plan (12/03/2022 9:32 AM CDT): She is still going to her AA meetings and therapist. She has not had a drink since before she went to the hospital Start naltrexone to help with craving F/u in 3 months Assessment & Plan (09/22/2022 11:49 AM MANAGER TREASURY): She is still going to her AA meetings and therapist. She has not had a drink since before she went to the hospital F/u in 3 months Assessment & Plan (08/25/2022 12:27 PM MANAGER TREASURY): I recommend 1 month off for her to establish with the program and get a few meetings before returning back to her work as her job is a trigger for alcohol use. F/u in 1 month for re-evaluation Perimenopausal 10/30/2021 Assessment & Plan (10/30/2021 5:17 PM CDT): Ordered estradiol level prolactin levels fsh lh Stable continue to monitor Encounter for wellness examination 10/30/2021 Assessment & Plan (03/10/2024 12:38 PM CDT): Labs ordered Pap smear: had a hysterectomy for noncancerous reasons Mammogram up-to-date F/u in 1 year Assessment & Plan (12/03/2022 9:36 AM CDT): Ordered CBC, cmp, lipid, hgb a1c Pap smear has a hysterectomy for noncancerous reasons Mammogram referral F/u in 1 year Assessment & Plan (10/30/2021 5:18 PM CDT): Ordered CBC, cmp, lipid, hgb a1c, HIV, hep c, TSH, and free t4 Pap smear has a hysterectomy F/u in 1 year Personal history of colonic polyps 12/16/2020 Overview (12/16/2020): Repeat colonoscopy in 2 years (December 2022) for polyp surveillance. Paternal uncle had colon cancer diagnosed in his 50s. Two day colonoscopy prep next time or an extra dose of MiraLax and Gatorade prep next time. Absolute anemia 10/11/2020 Overview (10/11/2020): Added automatically from request for surgery [id number] Anemia 09/28/2019 Assessment & Plan (09/28/2019 1:50 PM MANAGER TREASURY): Upper endoscopy with biopsies to check for H pylori and to exclude peptic ulcer disease Check CBC, iron, ferritin, vitamin B12, folate Change in bowel habits 09/28/2019 Assessment & Plan (09/28/2019 2:21 PM MANAGER TREASURY): High-fiber diet daily. Citrucel 1 tablespoonful daily. Stay hydrated Colonoscopy Vitamin B12 deficiency 03/21/2019 Assessment & Plan (03/10/2024 12:37 PM CDT): Continue with b12 injections Assessment & Plan (12/02/2022 7:00 AM CDT): Continue with b12 injections Assessment & Plan (10/30/2021 5:14 PM CDT): Cbc and vitamin b12 ordered today Continue with b12 injections Assessment & Plan (09/28/2019 1:48 PM MANAGER TREASURY): Check vitamin B12 level Family hx of colon cancer requiring screening co lonoscopy 03/21/2019 Vitamin D deficiency 04/29/2018 Assessment & Plan (03/10/2024 12:37 PM CDT): Stable continue to monitor Assessment & Plan (06/29/2023 9:09 AM MANAGER TREASURY): Stable continue to monitor Vitamin d serum ordered Vit d sent to the pharmacy Assessment & Plan (12/02/2022 7:01 AM CDT): Stable continue to monitor Vitamin d serum ordered Assessment & Plan (10/30/2021 5:14 PM CDT): Stable continue to monitor Vitamin d serum ordered Assessment & Plan (09/28/2019 2:30 PM MANAGER TREASURY): Check vitamin-D level Continue Vitamin D supplementation. Excessive and frequent menstruation with regular cycle 03/31/2018 Chronic fatigue 09/03/2017 Chronic midline low back pain 09/03/2017 Myalgia 09/03/2017 Situational anxiety 09/03/2017 Assessment & Plan (10/30/2021 5:16 PM CDT): Controlled given circumstances Continue to monitor Sleep paralysis, recurrent isolated 09/03/2017 Depression 07/05/2017 Assessment & Plan (03/10/2024 12:38 PM CDT): Stable / clinically quiescent. Will continue to monitor. Continue following with psychiatry Assessment & Plan (12/03/2022 9:33 AM CDT): Stable / clinically quiescent. Will continue to monitor. continue mirtazapine 15 mg at night Continue following with psychiatry Chronic tonsillitis 11/27/2016 Lymphadenopathy, cervical 11/27/2016 Recurrent bleeding 11/27/2016 Seasonal allergic rhinitis due to pollen 017 Resolved Problems Problem Noted Date Diagnosed Date Resolved Date Alcohol withdrawal syndrome, uncomplicated 08/17/2022 03/13/2024 Encounters Date Type Department Care Team Description 08/03/2024 Telephone [facility] [place] [address] [place] [phone] Anne Marie Bernal MA 08/01/2024 Telephone [facility] [place] [address] [place] [phone] Caterina Augustin MA 07/31/2024 10:00 PM MANAGER TREASURY - 07/31/2024 11:59 PM MANAGER TREASURY [place] [address] Flu-like symptoms Discharge Disposition: Discharge to home or self care 07/31/2024 4:30 PM MANAGER TREASURY Office Visit [facility] [place] [address] [place] [address] Kathryn Lindsay NP Pharyngitis, unspecified etiology (Primary Dx); Flu-like symptoms from Last 3 Months Immunizations Name Administration Dates Next Due Influenza, Trivalent, IM (MDV) 07/29/2016 Influenza, Trivalent, Preser vative Free, Intramuscular 07/27/2017 Influenza, Unspecified 05/31/2023,2022(Deferred: Patient Refused),04/16/2022,03/16/2022(Deferre d: Patient Refused),04/16/2021,07/29/2016 Pneumococcal Polysaccharide PPV23 09/06/2017 Surgical History Surgery Date Site/Laterality Comments NO PAST SURGERIES DILATION AND CURETTAGE OF UTERUS HYSTERECTOMY WISDOM TOOTH EXTRACTION COLONOSCOPY W/ BIOPSIES ESOPHAGOGASTRODUODENOSCOPY Medical History Medical History Date Comments Known health problems: none PONV (postoperative nausea and vomiting) Irritable bowel syndrome Depression Family History Medical History Relation Name Comments Cancer Father's Brother Colon cancer Father's Brother Relation Name Status Comments Father Alive Father's Brother Mother Alive Social History Tobacco Use Types Packs/Day Years Used Date Smoking Tobacco: Former E-cigarettes Quit: 08/2017 Smokeless Tobacco: Never Tobacco Cessation:Counseling Given: Not Answered Comments:ocassional vaping Alcohol Use Standard Drinks/Week Comments No 0 (1 standard drink = 0.6 oz pur e alcohol) AUDIT-C Answer Date Recorded Q1: How often do you have a drink containing alcohol? Never 06/28/2023 Q2: How many drinks containi ng alcohol do you have on a typical day when you are drinking? Patient does not drink Q3: How often do you have si x or more drinks on one occasion? Never 06/28/2023 PHQ-2 Answer Date Recorded PHQ-2 Total Score (If total score is 3 or more points, staff should administer the PHQ-9) 0 03/13/2024 Comments No Sex and Gender Information Value Date Recorded Sex Assigned at Not on file Legal Sex Female 12:50 AM MANAGER TREASURY Gender Identity Female 07/15/2021 11:49 AM MANAGER TREASURY Sexual Orientation Not on file Obstetrics History Last Filed Vital Signs Vital Sign Reading Time Taken Comments Blood Pressure 128/76 07/31/2024 4:31 PM MANAGER TREASURY Pulse 87 07/31/2024 4:31 PM MANAGER TREASURY Temperature 37.1 ??C (98.7 ??F) 07/31/2024 4:31 PM CS T Respiratory Rate 18 07/31/2024 4:31 PM MANAGER TREASURY Oxygen Saturation 99% 07/31/2024 4:31 PM MANAGER TREASURY Inhaled Oxygen Concentration - - Weight 59 kg (130 lb) 07/31/2024 4:31 PM MANAGER TREASURY Height 162.6 cm (5' 4 ) 07/31/2024 4:31 PM MANAGER TREASURY Body Mass Index 22.31 07/31/2024 4:31 PM MANAGER TREASURY Plan of Treatment Health Maintenance Due Date Last Done Comments DTaP/Tdap/Td Vaccine (1 - Tdap) 1992 Hepatitis B Screening 1999 Covid-19 Vaccine ( season) 2024 04/19/2021, 02/15/2021 Influenza Vaccine (#1) 2024 , 04/16/2022, 04/16/2021, Additional history exists Breast Cancer Screening-Mammogram 11/17/2024 11/18/2023, 12/14/2017, 12/14/2017, Additional history exists Depression Screening 03/13/2025 03/13/2024, 06/28/2023, 09/10/2022, Additional history exists Regular Well Visit/Exam 18-64 03/13/2025 03/13/2024, 12/03/2022, 10/30/2021 Pneumococcal vaccine <65 Aged Out 09/06/2017 No longer eligible based on patient's age to complete this topic Hepatitis C Screening Completed 04/04/2022 HPV Vaccines Aged Out No longer eligi ble based on patient's age to complete this topic Varicella Vaccines Discontinued Procedures Procedure Name Priority Date/Time Associated Diagnosis Comments POCT RAPID STREP Routine 07/31/2024 4:48 PM MANAGER TREASURY Pharyngitis, unspecified etiology COVID-19 POC Routine 07/31/2024 4:48 PM MANAGER TREASURY Flu-like symptoms POCT INFLUENZA A/B Routine 07/31/2024 4: 48 PM MANAGER TREASURY Flu-like symptoms INFLUENZA A/B, RSV, AND COVID-19 PCR Routine 07/31/2024 3:30 PM MANAGER TREASURY Flu-like symptoms DIAGNOSTIC MAMMOGRAM BILATERAL W JORGE Schedule Routine, Read Routine (OP Routine) 11/18/2023 12:48 PM CDT Screening mammogram, encounter for HEPATITIS C ANTIBODY Routine 04/04/2022 8:39 AM CDT Healthcare maintenance from Last 3 Months or Most Recently Relevant to Health Maintenance Results * COVID-19 POC (07/31/2024 4:48 PM MANAGER TREASURY) Pathologist [facility] COVID-19 Ag POC (BD Veritor) Presumptive Negative Presumptive Negative, Invalid [facility] Nasal 07/31/2024 4:48 PM MANAGER TREASURY us Kathryn Lindsay SENIOR INTERNATIONAL TAX MANAGER POINT OF CARE TEST ORDERABLES Fi nal Result [facility] [address] [place] [address] * POCT influenza A/B (07/31/2024 4:48 PM MANAGER TREASURY) [facility] Rapid Influenza A Ag Negative Negative, Invalid Rapid Influenza B Ag Negative Negative, Invalid Nasal 07/31/2024 4:48 PM MANAGER TREASURY us Kathryn Lindsay SENIOR INTERNATIONAL TAX MANAGER POINT OF CARE TEST ORDERABLES Fi nal Result * POCT rapid strep A (07/31/2024 4:48 PM MANAGER TREASURY) Pathologist [facility] Rapid Strep A, POC Negative Negative Swab 07/31/2024 4:48 PM MANAGER TREASURY us Kathryn Lindsay SENIOR INTERNATIONAL TAX MANAGER POINT OF CARE TEST ORDERABLES Fi nal Result * Influenza A/B, RSV, and COVID-19 PCR Nasopharyngeal (07/31/2024 3:30 PM MANAGER TREASURY) COVID-19 RNA Negative Negative Influenza A RNA Negative Negative [facility] Influenza B RNA Negative Negative [facility] RSV RNA Negative Negative [facility] Comment: Interpretive data: Testing performed by [facility]. This test is performed using the [employer] Xpert Xpress CoV-2/Flu/RSV plus assay. This is a multiplex, real-time reverse transcriptase PCR assay intended for the qualitative detection of nucleic acid from SARS-CoV-2, influenza A, influenza B, and respiratory syncytial virus. This assay has been cleared by the [place] Food and Drug administration. The performance characteristics have been verified by the [facility]. ??Results must be considered in the clinical context, and a negative result does not rule out infection. Interpretive Data last revised 2023 Nasopharyngeal 07/31/2024 3: 30 PM MANAGER TREASURY 07/31/2024 10:34 PM MANAGER TREASURY Narrative [facility] - 08/01/2024 12:09 AM MANAGER TREASURY Is the Patient experiencing symptoms consistent with COVID?->Yes Reason for testing?->Symptomatic Is the patient experiencing any symptoms consistent with COVID (eg. Fever, cough, shortness of breath)?->Yes Kathryn Lindsay NP LAB MICROBIOLOGY - GENERAL ORDER [place] Final Result Performing Organization Address City/State/[facility] Co de Phone Number [facility] [address] [address] Department [place] [address] * Diagnostic Mammogram Bilateral W Jorge (11/18/2023 12:48 PM CDT) Anatomical Region Laterality Modality Breast Bilateral Mammography 11/18/2023 2:09 PM CDT Impressions 11/18/2023 2:09 PM CDT Benign cyst left breast in the region of lump. BI-RADS 2 RECOMMENDATIONS: Annual screening mammography. Findings and recommendations were communicated to the patient. Electronically signed by: Tere Hilario M.D. Narrative 11/18/2023 2:09 PM CDT EXAMINATION/TECHNIQUE: Bilateral digital diagnostic mammogram including cad and digital breast tomosynthesis. Ultrasound left breast. HISTORY: Lump left breast COMPARISON: Prior mammograms from 2018 in 2016. FINDINGS: ??The breasts are extremely dense, which lowers the sensitivity of mammography. Left breast: There is obscured mass adjacent to the lump marker at about 2 o'clock position. ??Additional smaller masses noted about 3 to 4 o'clock position in the posterior breast. ??This appears similar to prior mammograms of 2018. ??Ultrasound was done. Ultrasound left breast shows anechoic well-circumscribed benign cyst at 2 o'clock position 3 to 4 cm from nipple measuring up to 1.8 cm in size. ??This is noted in the region of mammographic mass and represents palpable lump. There is additional mass at 3 o'clock position 3 cm from nipple with internal organized debris and posterior acoustic enhancement. ??No internal vascularity noted. ??This measures 7 mm in size and correlates with the mammographically stable masses. ??No suspicious findings noted. Right breast: No suspicious masses, microcalcifications are architectural distortion visualized. us Paola Baker MD IMG MAMMO PROCEDURES Final Result * Hepatitis C antibody (04/04/2022 8:39 AM CDT) Hep C Ab Nonreactive Nonreactive [facility] ([place]) Comment: Interpretive Data Nonreactive: Antibodies to HCV not detected. Does NOT exclude the possibility of recent exposure to HCV. Equivocal: Equivocal for HCV antibodies. Supplemental molecular testing will be automatically performed to determine infection status in accordance with current CDC screening recommendations. ?? Reactive: Positive for HCV antibodies. ??This may represent current or past HCV infection. Supplemental molecular testing will be automatically performed to determine ??current infection status in accordance with current CDC screening recommendations. Interpretive data was last revised on 2019. Testing performed by: [facility], [address] [place] [address], [place]., [address] Blood 04/04/2022 8:39 AM CDT 04/04/2022 11:28 AM CDT us Paola Baker MD LAB MICROBIOLOGY - KeyOwnerAL ORDERABLES Final Result [facility] ([place]) [address] [facility] [place] [address] from Last 3 Months or Most Recently Relevant to Health Maintenance Insurance [facility] Advance Directives For more information, please contact: [phone] * Full Code (Latest Code Status on File) Date Activated Date Inactivated Comments 08/17/2022 12:02 PM 08/19/2022 11:57 PM * Full Code Date Activated Date Inactivated Comments 12/16/2020 2:08 PM 12/16/2020 8:19 PM * Full Code Date Activated Date Inactivated Comments 04/05/2018 12:42 PM 04/06/2018 11:28 AM Care Teams Software Developer Mid Level Relationship Specialty Start Date End Date Paola Baker MD [address] [place] [address] [place] [address] PCP - General Family Medicine 10/30/21
--- OUTSIDE RECORDS SUMMARY | 2024-09-08 03:34 | XMS_ITS | Referral Summary ---
Author Organization [facility] Address [address] [place] [address] Care Team Providers Care Computational Biologist Name Role Phone Paola Baker MD Primary Care Provide r Encounters Date Type Department Care Team Description 08/03/2024 Telephone [facility] [place] [address] [place] [address] Anne Marie Bernal MA 08/01/2024 Telephone [facility] [place] [address] [place] [address] Caterina Augustin MA 07/31/2024 10:00 PM BULLION WEIGHER - 07/31/2024 11:59 PM [facility] WEIGHER Hospital Encounter [address] [address] Flu-like symptoms Discharge Disposition: Discharge to home or self care 07/31/2024 4:30 PM BULLION WEIGHER Office Visit [facility] [place] [address] [place] [address] Kathryn Lindsay NP Pharyngitis, unspecified etiology (Primary Dx); Flu-like symptoms from Last 3 Months Allergies Active Allergy Reactions Criticality Noted Date [...] better Assessment & Plan (06/29/2023 9:09 AM BULLION WEIGHER): Has not used alcohol since November She [...] months Assessment & Plan (09/22/2022 11:49 AM BULLION WEIGHER): She is still going to her AA meetings and therapist. She has not had a drink since before she went to the hospital F/u in 3 months Assessment & Plan (08/25/2022 12:27 PM BULLION WEIGHER): I recommend 1 month off for her [...] (10/11/2020): Added automatically from request for surgery [id number] Anemia 09/28/2019 Assessment & Plan (09/28/2019 1:50 PM BULLION WEIGHER): Upper endoscopy with biopsies to check for H pylori and to exclude peptic ulcer disease Check CBC, iron, ferritin, vitamin B12, folate Change in bowel habits 09/28/2019 Assessment & Plan (09/28/2019 2:21 PM BULLION WEIGHER): High-fiber diet daily. Citrucel 1 tablespoonful daily. Stay hydrated Colonoscopy Vitamin B12 deficiency 03/21/2019 Assessment & Plan (03/10/2024 12:37 PM CDT): Continue with b12 injections Assessment & Plan (12/02/2022 7:00 AM CDT): Continue with b12 injections Assessment & Plan (10/30/2021 5:14 PM CDT): Cbc and vitamin b12 ordered today Continue with b12 injections Assessment & Plan (09/28/2019 1:48 PM BULLION WEIGHER): Check vitamin B12 level Family hx of colon cancer requiring screening co lonoscopy 03/21/2019 Vitamin D deficiency 04/29/2018 Assessment & Plan (03/10/2024 12:37 PM CDT): Stable continue to monitor Assessment & Plan (06/29/2023 9:09 AM BULLION WEIGHER): Stable continue to monitor Vitamin d serum ordered Vit d sent to the pharmacy Assessment & Plan (12/02/2022 7:01 AM CDT): Stable continue to monitor Vitamin d serum ordered Assessment & Plan (10/30/2021 5:14 PM CDT): Stable continue to monitor Vitamin d serum ordered Assessment & Plan (09/28/2019 2:30 PM BULLION WEIGHER): Check vitamin-D level Continue Vitamin D supplementation. [...] Date Alcohol withdrawal syndrome, uncomplicated 08/17/2022 03/13/2024 Immunizations Name Administration Dates Next Due Influenza, Trivalent, IM (MDV) 07/29/2016 Influenza, Trivalent, Preser vative Free, Intramuscular 07/27/2017 Influenza, Unspecified 05/31/2023,2022(Deferred: Patient Refused),04/16/2022,03/16/2022(Deferre d: Patient Refused),04/16/2021,07/29/2016 Pneumococcal Polysaccharide PPV23 09/06/2017 Social History Tobacco Use Types Packs/Day Years [...] on file Legal Sex Female 12:50 AM BULLION WEIGHER Gender Identity Female 07/15/2021 11:49 AM BULLION WEIGHER Sexual Orientation Not on file Last Filed Vital Signs Vital Sign Reading Time Taken Comments Blood Pressure 128/76 07/31/2024 4:31 PM BULLION WEIGHER Pulse 87 07/31/2024 4:31 PM BULLION WEIGHER Temperature 37.1 ??C (98.7 ??F) 07/31/2024 4:31 PM CS T Respiratory Rate 18 07/31/2024 4:31 PM BULLION WEIGHER Oxygen Saturation 99% 07/31/2024 4:31 PM BULLION WEIGHER Inhaled Oxygen Concentration - - Weight 59 kg (130 lb) 07/31/2024 4:31 PM BULLION WEIGHER Height 162.6 cm (5' 4 ) 07/31/2024 4:31 PM BULLION WEIGHER Body Mass Index 22.31 07/31/2024 4:31 PM BULLION WEIGHER Plan of Treatment Not on file Procedures Procedure Name Priority Date/Time Associated Diagnosis Comments POCT RAPID STREP Routine 07/31/2024 4:48 PM BULLION WEIGHER Pharyngitis, unspecified etiology COVID-19 POC Routine 07/31/2024 4:48 PM BULLION WEIGHER Flu-like symptoms POCT INFLUENZA A/B Routine 07/31/2024 4: 48 PM BULLION WEIGHER Flu-like symptoms INFLUENZA A/B, RSV, AND COVID-19 PCR Routine 07/31/2024 3:30 PM BULLION WEIGHER Flu-like symptoms DIAGNOSTIC MAMMOGRAM BILATERAL W JORGE Schedule Routine, Read Routine (OP Routine) 11/18/2023 12:48 PM CDT Screening mammogram, encounter for HEPATITIS C ANTIBODY Routine 04/04/2022 8:39 AM CDT Healthcare maintenance from Last 3 Months or Most Recently Relevant to Health Maintenance Results * COVID-19 POC (07/31/2024 4:48 PM BULLION WEIGHER) Pathologist [facility] COVID-19 Ag POC (BD Veritor) Presumptive Negative Presumptive Negative, Invalid [facility] Nasal 07/31/2024 4:48 PM BULLION WEIGHER us Kathryn Lindsay NP POINT OF CARE TEST ORDERABLES Fi nal Result [facility] [address] [place] [address], [facility] [[email or web address]] * POCT influenza A/B (07/31/2024 4:48 PM BULLION WEIGHER) Pathologist [facility] Rapid Influenza A Ag Negative Negative, Invalid Rapid Influenza B Ag Negative Negative, Invalid Nasal 07/31/2024 4:48 PM BULLION WEIGHER us Kathryn Lindsay NUTRITION INTERN POINT OF CARE TEST ORDERABLES Fi nal Result * POCT rapid strep A (07/31/2024 4:48 PM BULLION WEIGHER) Pathologist [facility] Rapid Strep A, POC Negative Negative Swab 07/31/2024 4:48 PM BULLION WEIGHER us Kathryn Lindsay NUTRITION INTERN POINT OF CARE TEST ORDERABLES Fi nal Result * Influenza A/B, RSV, and COVID-19 PCR Nasopharyngeal (07/31/2024 3:30 PM BULLION WEIGHER) [facility] COVID-19 RNA Negative Negative Influenza A RNA Negative Negative [facility] Influenza B RNA Negative Negative [facility] RSV RNA Negative Negative [facility] Comment: Interpretive data: Testing performed by [facility]. This test is performed using the [facility] Xpert Xpress CoV-2/Flu/RSV plus assay. This is a multiplex, real-time reverse transcriptase PCR assay intended for the qualitative detection of nucleic acid from SARS-CoV-2, influenza A, influenza B, and respiratory syncytial virus. This assay has been cleared by the [place] Food and Drug administration. The performance characteristics have been verified by the [facility]. ??Results must be considered in the clinical context, and a negative result does not rule out infection. Interpretive Data last revised 2023 Nasopharyngeal 07/31/2024 3: 30 PM BULLION WEIGHER 07/31/2024 10:34 PM BULLION WEIGHER Narrative [facility] - 08/01/2024 12:09 AM BULLION WEIGHER Is the Patient experiencing symptoms consistent with COVID?->Yes Reason for testing?->Symptomatic Is the patient experiencing any symptoms consistent with COVID (eg. Fever, cough, shortness of breath)?->Yes us Kathryn Lindsay NUTRITION INTERN LAB MICROBIOLOGY - GENERAL ORDER [place] Final Result [facility] [id number] [place] [address] * Diagnostic Mammogram Bilateral W Jorge (11/18/2023 [...] suspicious masses, microcalcifications are architectural distortion visualized. Paola Baker MD IMG MAMMO PROCEDURES Final [...] last revised on 2019. Testing performed by: [facility], [address] [place] [address]., [id number] Blood 04/04/2022 8:3 9 AM CDT 04/04/2022 11:28 AM CDT us Paola Baker MD LAB MICROBIOLOGY - NERAL ORDERABLES Final Result [facility] ([facility]) [address] [facility] Department [place] [address] from Last 3 Months or Most Recently Relevant to Health [place] [address] [facility] C[facility] Advance Directives For more information, please contact: [phone] * Full Code (Latest Code Status on File) Date Activated Date Inactivated Comments 08/17/2022 12:02 PM 08/19/2022 11:57 PM * Full Code Date Activated Date Inactivated Comments 12/16/2020 2:08 PM 12/16/2020 8:19 PM * Full Code Date Activated Date Inactivated Comments 04/05/2018 12:42 PM 04/06/2018 11:28 AM Care Teams Computational Biologist Relationship Specialty Start Date End Date Paola Baker MD [address] [place] [address] DR SHAH [address] [place] [id number] PCP - General Family Medicine 10/30/21
--- OUTSIDE RECORDS SUMMARY | 2024-09-08 03:34 | XMS_ITS | Clinical Summary ---
Author Organization [facility] Address [address] [place] [address] Phone Care Team Providers Care Commissioner Of Officials Name Role Phone Paola Baker MD Primary Care Provide r Allergies Active Allergy Reactions Criticality Noted Date Comments Propoxyphene Nausea,Vomiting,Unknown Medium Oxycodone Vomiting Medium 04/29/2018 Medications azelastine (ASTELIN) 0.1 % Solution 1 Loving by Nasal route. Active FLUTICASONE PROPIONATE EX by Apply externally route. Active cetirizine (ZYRTEC) 10 MG Tablet TK 1 T PO D 0 9 Active FLUoxetine (PROZAC) 40 MG Capsule TK 1 C PO QAM 0 9 Active Ascorbic Acid (VITAMIN C) 1000 MG Tablet Take by mouth. Activ e Cholecalciferol (VITAMIN D) 2000 UNIT Tablet Take by mouth. Act sonal albuterol 108 (90 Base) MCG/ACT Aerosol SolutionIndicati ons:Upper respiratory tract infection, unspecified type take 2 Puffs by inhalation every 6 hours as needed for Wheezing or Cough. 8.5 g 9 Active HYDROcodone-acet aminophen (NORCO) 5-325 MG TabletIndication s:Chronic midline low back pain with bilateral sciatica Take 1 Tab by mouth every 8 hours as needed (pain). 90 Tab 0 Active valACYclovir (VALTREX) 1 GM Tablet Take 2 Tabs by mouth 2 times daily. 6 Tab 3 0 Active buprenorphine 8 MG SL Tablet DISSOLVE ONE T UNDER THE TONGUE TID 11/05/202 0 Active cyanocobalamin (VITAMIN B-12) 1000 MCG/ML Solution Inject Vitamin B12 1000mcg IM twice weekly on Mondays and X4 weeks then 1000mcg IM monthly thereafter. Dispense in 1mL vials 0 Active penicillin v potassium 500 MG Tablet TK ONE T PO Q 6 H TAT 0 Active mirtazapine (REMERON) 15 MG Tablet TK 1 T PO HS 0 Active azithromycin (Zithromax Z-Hipolito) 250 MG TabletIndication s:Sore throat,Fever, unspecified fever cause 2 tab(s) daily for 1 day, then 1 tab(s) daily for days 2-5. 6 Tab 0 Active Active Problems Patient Care Coordination No te Formatting of this note migh t be different from the original. 09/03/2017: Medication use agreement, prescription monitoring program and urine drug screen all completed this date. Problem Noted Date Diagnosed Date B12 deficiency 03/21/2019 Family hx of colon cancer requiring screening co lonoscopy 03/21/2019 Vitamin D deficiency 04/29/2018 Excessive and frequent menstruation with regular cycle 03/31/2018 Chronic midline low back pain 09/03/2017 Situational anxiety 09/03/2017 Sleep paralysis, recurrent isolated 09/03/2017 Chronic fatigue 09/03/2017 Myalgia 09/03/2017 Depression 07/05/2017 Chronic tonsillitis 11/27/2016 Recurrent bleeding 11/27/2016 Seasonal allergic rhinitis due to pollen 017 Lymphadenopathy, cervical 11/27/2016 Immunizations Immunization Administration Dates Next Due Influenza Vaccine 07/27/2017 Influenza Vaccine greater than 3 yrs 07/29/2016 Influenza, Seasonal, Injectable, Undefined 07/29 Pneumococcal Vaccine Adult - 23 Valent 8 Family History Medical History Relation Name Comments Coronary Artery Disease Father Cancer Paternal Grandfather colon Cancer Paternal Uncle colon Relation Name Status Comments Father Alive Mother Alive Paternal Grandfather Paternal Uncle Social History Tobacco Use Types Packs/Day Years Used Date Smoking Tobacco: Former Cigarettes Q uit: 07/16/2017 Smokeless Tobacco: Never Tobacco Cessation:Ready to Q uit: No; Counseling Given: Yes Comments:1PPW x 20. now 1-2 cigs/week Alcohol Use Standard Drinks/Week Comments Yes 0 (1 standard drink = 0.6 oz pur e alcohol) rarely Comments No Sex and Gender Information Value Date Recorded Sex Assigned at Not on file Legal Sex Female 7:35 PM CDT Gender Identity Not on file Sexual Orientation Not on file Occupation Industry Job Start Date Job End Date clinical information Not on file Not on file Not on file Last Filed Vital Signs Vital Sign Reading Time Taken Comments Blood Pressure 107/94 04/07/2024 9:30 AM CDT Pulse 89 04/07/2024 9:30 AM CDT Temperature 36.7 ??C (98 ??F) 04/07/2024 9:30 AM CDT Respiratory Rate 16 04/07/2024 9:30 AM CDT Oxygen Saturation 100% 04/07/2024 9:30 AM CDT Inhaled Oxygen Concentration - - Weight 58.1 kg (128 lb) 04/07/2024 7:56 AM CDT Height 160 cm (5' 3 ) 04/07/2024 7:56 AM CDT Body Mass Index 22.67 04/07/2024 7:56 AM CDT Plan of Treatment Health Maintenance Due Date Last Done Comments Hepatitis C Virus (HCV) Screening 1981 TdaP Immunization 1981 Hepatitis B Immunization (1 of 3 - 19+ 3-dose series) 2000 Influenza Immunization (#1) 04/16/202405/16, 04/16/2022, 04/16/2021, Additional history exists SARS-COV-2 Immunization ( season) 2024 04/19/2021, 02/15/2021 Respiratory Syncytial Virus (RSV) Immunization (Adult) (1 - 1-dose 75+ series) 2056 Pneumococcal Immunization Combined Aged Out 09/06/2017 No longer eligible based on patient's age to complete this topic Cervical Cancer Screening (CCS) Discontinued Pap Smear Discontinued 03/29/2018 Discussion re Starting/Frequency of Mammograms Completed 11/18/2023, 12/14/2017, 12/14/2017, Additional history exists HPV/Cotest Discontinued Meningococcal Immunization (ACWY) Aged Out No longer eligible based on patient's age to complete this topic Rotavirus Immunization Aged Out No lo nger eligible based on patient's age to complete this topic Procedures Procedure Name Priority Date/Time Associated Diagnosis Comments BRANDON DIAG BILATERAL DIGITAL W CAD W JANEEN Routine 12/14/2017 from Last 3 Months or Most Recently Relevant to Health Maintenance Results * BRANDON DIAG BILATERAL DIGITAL W CAD W JANEEN (12/14/2017) Anatomical Region Laterality Modality breast Bilateral Mammography us Not On File Provider IMG MAMMO ORDERABLES Final Result from Last 3 Months or Most Recently Relevant to Health [place] [address] [facility] Care Teams Commissioner Of Officials Relationship Specialty Start Date End Date Paola Baker MD [address] [place] [address] PCP - General Family Medicine 04/07/24
== END 2024-09-06 20:20 | disposition home or self-care (01) ==
PROVIDERS: Emergency Provider Nurse Practitioner
DX: J02.9 Acute pharyngitis, unspecified (principal); Z20.822 Contact with and (suspected) exposure to COVID-19; F17.290 Nicotine dependence, other tobacco product, uncomplicated
CPT/HCPCS: 87081; 87426; 87804; 87880; 99213; G0463

== ENCOUNTER 2024-09-20 19:25 | Emergency (ER) | payer OTHER, SELFPAY ==
--- OUTSIDE RECORDS SUMMARY | 2024-09-20 19:27 | XMS_ITS | Clinical Summary ---
Author Organization [facility] Healthcare Address [address] [place] [address] Care Team Providers Care Credit Support Counselor Name Role Phone Paola Baker MD Primary Care Provide r Allergies Active Allergy Reactions Criticality Noted Date Comments Propoxyphene-Acetaminop hen Nausea only,Vomiting Low Reaction: NAUSEA, VOMITING, Oxycodone Vomiting Medium 04/29/2018 Propoxyphene Nausea only,Unknown,Vomitin g Medium 08/05/2019 Medications mirtazapine (REMERON) 15 mg tablet Take 1 tablet (15 mg total) by mouth nightly at bedtime. 0 Active acetaminophen 500 mg capsule Take 2 capsules (1,000 mg total) by mouth every 6 (six) hours as needed for pain for up to 60 doses 60 tablet 3 Active syringe with needle, safety (BD Integra Syringe) 3 mL 25 gauge x 1 syringe USE TO INJECT VITAMIN B12 IN THE MUSCLE DIRECTED 3 each 3 3 Active clonazePAM (KlonoPIN) 1 mg tablet Take 1 tablet (1 mg total) by mouth 2 (two) times a day 3 Active ergocalciferol (VITAMIN D) 50,000 unit capsule Take 1 capsule (50,000 Units total) by mouth once a week 12 capsule 1 3 Active ondansetron ODT (ZOFRAN-ODT) 4 mg disintegrating tablet DISSOLVE 1 TABLET ON THE TONGUE EVERY 8 HOURS NEEDED FOR NAUSEA OR VOMITING 4 Active albuterol HFA (PROVENTIL HFA,VENTOLIN HFA,PROAIR HFA) 90 mcg/actuation inhalerIndications :Viral URI with cough Inhale 2 puffs every 6 (six) hours as needed for wheezing 1 each 4 Active BD Luer-Allan Syringe 3 mL 25 gauge x 1 syringe USE TO INJECT VITAMIN B12 IN THE MUSCLE DIRECTED 3 each 2 4 Active metoprolol XL (TOPROL-XL) 25 mg extended release tablet Take 0.5 tablets (12.5 mg total) by mouth daily 45 tablet 3 4 025 Active cyanocobalamin (Vitamin B-12) 1,000 mcg/mL injection ADMINISTER 1 ML IN THE MUSCLE MONTHLY 3 mL 4 Active valACYclovir (VALTREX) 1 gram tablet TAKE 2 TABLETS(2000 MG) BY MOUTH TWICE DAILY FOR 1 DAY 4 tablet 4 Active ondansetron ODT (ZOFRAN-ODT) 4 mg disintegrating tabletIndications: Nausea Take 1 tablet (4 mg total) by mouth every 8 (eight) hours as needed for nausea or vomiting 20 tablet 5 Active Active Problems Problem Noted Date Diagnosed Date [...] better Assessment & Plan (06/29/2023 9:09 AM NECK BAND MAKER): Has not used alcohol since November She [...] months Assessment & Plan (09/22/2022 11:49 AM NECK BAND MAKER): She is still going to her AA meetings and therapist. She has not had a drink since before she went to the hospital F/u in 3 months Assessment & Plan (08/25/2022 12:27 PM NECK BAND MAKER): I recommend 1 month off for her [...] (10/11/2020): Added automatically from request for surgery [id number] Anemia 09/28/2019 Assessment & Plan (09/28/2019 1:50 PM NECK BAND MAKER): Upper endoscopy with biopsies to check for H pylori and to exclude peptic ulcer disease Check CBC, iron, ferritin, vitamin B12, folate Change in bowel habits 09/28/2019 Assessment & Plan (09/28/2019 2:21 PM NECK BAND MAKER): High-fiber diet daily. Citrucel 1 tablespoonful daily. Stay hydrated Colonoscopy Vitamin B12 deficiency 03/21/2019 Assessment & Plan (03/10/2024 12:37 PM CDT): Continue with b12 injections Assessment & Plan (12/02/2022 7:00 AM CDT): Continue with b12 injections Assessment & Plan (10/30/2021 5:14 PM CDT): Cbc and vitamin b12 ordered today Continue with b12 injections Assessment & Plan (09/28/2019 1:48 PM NECK BAND MAKER): Check vitamin B12 level Family hx of colon cancer requiring screening co lonoscopy 03/21/2019 Vitamin D deficiency 04/29/2018 Assessment & Plan (03/10/2024 12:37 PM CDT): Stable continue to monitor Assessment & Plan (06/29/2023 9:09 AM NECK BAND MAKER): Stable continue to monitor Vitamin d serum ordered Vit d sent to the pharmacy Assessment & Plan (12/02/2022 7:01 AM CDT): Stable continue to monitor Vitamin d serum ordered Assessment & Plan (10/30/2021 5:14 PM CDT): Stable continue to monitor Vitamin d serum ordered Assessment & Plan (09/28/2019 2:30 PM NECK BAND MAKER): Check vitamin-D level Continue Vitamin D supplementation. [...] Encounters Date Type Department Care Team Description 09/19/2024 6:00 PM NECK BAND MAKER Office Visit [facility] Medical [facility] [place] [address] [place] [phone] Ofelia Morfin NP Acute viral syndrome (Primary Dx); Fever, unspecified fever cause; Nausea 08/03/2024 Telephone [facility] [place] [address] [place] [phone] Anne Marie Bernal MA 08/01/2024 Telephone [facility] [place] [address] [phone] Caterina Augustin MA 07/31/2024 10:00 PM NECK BAND MAKER - 07/31/2024 11:59 PM NECK BAND [place]ER [place] [address] Flu-like symptoms Discharge Disposition: Discharge to home or self care 07/31/2024 4:30 PM NECK BAND MAKER Office Visit [facility] Medical Group [facility] [address] [place] [address] Kathryn Lindsay NP Pharyngitis, unspecified etiology [...] on file Legal Sex Female 12:50 AM NECK BAND MAKER Gender Identity Female 07/15/2021 11:49 AM NECK BAND MAKER Sexual Orientation Not on file Obstetrics History Last Filed Vital Signs Vital Sign Reading Time Taken Comments Blood Pressure 102/66 09/19/2024 6:08 PM NECK BAND MAKER Pulse 84 09/19/2024 6:08 PM NECK BAND MAKER Temperature 36.8 C (98.2 F) 09/19/2024 6:08 PM NECK BAND MAKER Respiratory Rate 18 09/19/2024 6:08 PM NECK BAND MAKER Oxygen Saturation 97% 09/19/2024 6:08 PM NECK BAND MAKER Inhaled Oxygen Concentration - - Weight 60.2 kg (132 lb 12.8 oz) 09/19/2024 6:08 PM NECK BAND MAKER Height 162.6 cm (5' 4 ) 09/19/2024 6:08 PM NECK BAND MAKER Body Mass Index 22.8 09/19/2024 6:08 PM NECK BAND MAKER Plan of Treatment Health Maintenance Due Date [...] Procedure Name Priority Date/Time Associated Diagnosis Comments POC INFLUENZA A/B, COVID-19 ANTIGEN Routine 09/19/2024 6:27 PM NECK BAND MAKER Fever, unspecified fever cause POCT RAPID STREP Routine 09/19/2024 6:22 PM NECK BAND MAKER Fever, unspecified fever cause POCT RAPID STREP Routine 07/31/2024 4:48 PM NECK BAND MAKER Pharyngitis, unspecified etiology COVID-19 POC Routine 07/31/2024 4:48 PM NECK BAND MAKER Flu-like symptoms POCT INFLUENZA A/B Routine 07/31/2024 4: 48 PM NECK BAND MAKER Flu-like symptoms INFLUENZA A/B, RSV, AND COVID-19 PCR Routine 07/31/2024 3:30 PM NECK BAND MAKER Flu-like symptoms DIAGNOSTIC MAMMOGRAM BILATERAL W JORGE Schedule Routine, Read Routine (OP Routine) 11/18/2023 12:48 PM CDT Screening mammogram, encounter for HEPATITIS C ANTIBODY Routine 04/04/2022 8:39 AM CDT Healthcare maintenance from Last 3 Months or Most Recently Relevant to Health Maintenance Results * POC Influenza A/B, COVID-19 antigen (09/19/2024 6:27 PM NECK BAND MAKER) [facility] Influenza A Ag, POC Negative Negative [facility] Influenza B Ag, POC Negative Negative [facility] COVID-19 Ag POC Presumptive Negative Presumptive Negative, Invalid [facility] Nasal 09/19/2024 6:27 PM NECK BAND MAKER Kathryn Lindsay NP POINT OF CARE TEST ORDERABLES Fi nal Result [facility] [address] [place] [address], [facility] * POCT rapid strep A (09/19/2024 6:22 PM NECK BAND MAKER) [facility] Rapid Strep A, POC Negative Negative Swab 09/19/2024 6:22 PM NECK BAND MAKER us Kathryn Lindsay SURVEY RODMAN POINT OF CARE TEST ORDERABLES Fi nal Result * COVID-19 POC (07/31/2024 4:48 PM NECK BAND MAKER) [facility] COVID-19 Ag POC (BD Veritor) Presumptive Negative Presumptive Negative, Invalid [facility] Nasal 07/31/2024 4:48 PM NECK BAND MAKER us Kathryn Lindsay SURVEY [facility]OD[facility] POINT OF CARE TEST ORDERABLES Fi nal Result [facility] [address] [place] [address], [facility] * POCT influenza A/B (07/31/2024 4:48 PM NECK BAND MAKER) [facility] Rapid Influenza A Ag Negative Negative, Invalid Rapid Influenza B Ag Negative Negative, Invalid Nasal 07/31/2024 4:48 PM NECK BAND MAKER us Kathryn Lindsay SURVEY RODMAN POINT OF CARE TEST ORDERABLES Fi nal Result * POCT rapid strep A (07/31/2024 4:48 PM NECK BAND MAKER) [facility] Rapid Strep A, POC Negative Negative Swab 07/31/2024 4:48 PM NECK BAND MAKER us Kathryn Lindsay SURVEY RODMAN POINT OF CARE TEST ORDERABLES Fi nal Result * Influenza A/B, RSV, and COVID-19 PCR Nasopharyngeal (07/31/2024 3:30 PM NECK BAND MAKER) [facility] COVID-19 RNA Negative Negative [facility] Influenza A RNA Negative Negative [facility] Influenza B RNA Negative Negative [facility] RSV RNA Negative Negative [facility] Comment: Interpretive data: Testing performed by [facility]. This test is performed using the [employer] Xpert Xpress CoV-2/Flu/RSV plus assay. This is a multiplex, real-time reverse transcriptase PCR assay intended for the qualitative detection of nucleic acid from SARS-CoV-2, influenza A, influenza B, and respiratory syncytial virus. This assay has been cleared by the [place] Food and Drug administration. The performance characteristics have been verified by the [facility]. Results must be considered in the clinical context, and a negative result does not rule out infection. Interpretive Data last revised 2023 Nasopharyngeal 07/31/2024 3: 30 PM NECK BAND MAKER 07/31/2024 10:34 PM NECK BAND MAKER Narrative [facility] NAYAK - 08/01/2024 12:09 AM NECK BAND MAKER Is the Patient experiencing symptoms consistent with COVID?->Yes Reason for testing?->Symptomatic Is the patient experiencing any symptoms consistent with COVID (eg. Fever, cough, shortness of breath)?->Yes us Kathryn Lindsay NP LAB MICROBIOLOGY - GENERAL ORDER ROSELYN Final Result Performing Organization Address City/State/[facility] Co de Phone Number L[facility] [address] [place] [address] * Diagnostic Mammogram Bilateral W Jorge (11/18/2023 [...] Prior mammograms from 2018 in 2016. FINDINGS: The breasts are extremely dense, which lowers the sensitivity of mammography. Left breast: There is obscured mass adjacent to the lump marker at about 2 o'clock position. Additional smaller masses noted about 3 to 4 o'clock position in the posterior breast. This appears similar to prior mammograms of 2018. Ultrasound was done. Ultrasound left breast shows anechoic well-circumscribed benign cyst at 2 o'clock position 3 to 4 cm from nipple measuring up to 1.8 cm in size. This is noted in the region of mammographic mass and represents palpable lump. There is additional mass at 3 o'clock position 3 cm from nipple with internal organized debris and posterior acoustic enhancement. No internal vascularity noted. This measures 7 mm in size and correlates with the mammographically stable masses. No suspicious findings noted. Right breast: No suspicious [...] in accordance with current CDC screening recommendations. Reactive: Positive for HCV antibodies. This may represent current or past HCV infection. Supplemental molecular testing will be automatically performed to determine current infection status in accordance with current CDC screening recommendations. Interpretive data was last revised on 2019. Testing performed by: [facility], [address] [place] [address]., [id number] Blood 04/04/2022 8:39 AM CDT 04/04/2022 11:28 AM CDT Paola Baker MD LAB MICROBIOLOGY - NERAL ORDERABLES Final Result [facility] MIRAMONTES ([place]) [address] [facility] [place] [address] from Last 3 Months or Most Recently Relevant to Health Maintenance Insurance [facility] [place] [address] [place] [address] [facility] [address] Advance Directives For more information, please contact: [phone] * Full Code (Latest Code Status on File) Date Activated Date Inactivated Comments 08/17/2022 12:02 PM 08/19/2022 11:57 PM * Full Code Date Activated Date Inactivated Comments 12/16/2020 2:08 PM 12/16/2020 8:19 PM * Full Code Date Activated Date Inactivated Comments 04/05/2018 12:42 PM 04/06/2018 11:28 AM Care Teams Credit Support Counselor Relationship Specialty Start Date End Date Paola Baker MD [address] [facility] [place] [address] PCP - General Family Medicine 10/30/21
--- OUTSIDE RECORDS SUMMARY | 2024-09-20 19:27 | XMS_ITS | Referral Summary ---
Author Organization [facility] Healthcare Address [address] [place] [address] Care Team Providers Care Chemical Laboratory Scientist Name Role Phone Paola Baker MD Primary Care Provide r Encounters Date Type Department Care Team Description 09/19/2024 6:00 PM MANAGER SECONDARY Office Visit [facility] Medical Group [facility] at [address] [place] [address] Ofelia Morfin NP Acute viral syndrome (Primary Dx); Fever, unspecified fever cause; Nausea 08/03/2024 Telephone [facility] Medical Group [facility] [place] [address] [place] [address] Anne Marie Bernal MA 08/01/2024 Telephone [facility] Medical Group [facility] at [address] [place] [address] Caterina Augustin MA 07/31/2024 10:00 PM MANAGER SECONDARY - 07/31/2024 11:59 PM MANAGER SECONDARY Hospital Encounter [address] [address] Flu-like symptoms Discharge Disposition: Discharge to home or self care 07/31/2024 4:30 PM MANAGER SECONDARY Office Visit [facility] Medical Group [facility] at [address] [place] [address] Kathryn Lindsay, KENRICK Pharyngitis, unspecified etiology (Primary Dx); Flu-like symptoms [...] Assessment & Plan (06/29/2023 9:09 AM MANAGER SECONDARY): Has not used alcohol since November She [...] Assessment & Plan (09/22/2022 11:49 AM MANAGER SECONDARY): She is still going to her AA meetings and therapist. She has not had a drink since before she went to the hospital F/u in 3 months Assessment & Plan (08/25/2022 12:27 PM MANAGER SECONDARY): I recommend 1 month off for her [...] (10/11/2020): Added automatically from request for surgery [id number] Anemia 09/28/2019 Assessment & Plan (09/28/2019 1:50 PM MANAGER SECONDARY): Upper endoscopy with biopsies to check for H pylori and to exclude peptic ulcer disease Check CBC, iron, ferritin, vitamin B12, folate Change in bowel habits 09/28/2019 Assessment & Plan (09/28/2019 2:21 PM MANAGER SECONDARY): High-fiber diet daily. Citrucel 1 tablespoonful daily. Stay hydrated Colonoscopy Vitamin B12 deficiency 03/21/2019 Assessment & Plan (03/10/2024 12:37 PM CDT): Continue with b12 injections Assessment & Plan (12/02/2022 7:00 AM CDT): Continue with b12 injections Assessment & Plan (10/30/2021 5:14 PM CDT): Cbc and vitamin b12 ordered today Continue with b12 injections Assessment & Plan (09/28/2019 1:48 PM MANAGER SECONDARY): Check vitamin B12 level Family hx of colon cancer requiring screening co lonoscopy 03/21/2019 Vitamin D deficiency 04/29/2018 Assessment & Plan (03/10/2024 12:37 PM CDT): Stable continue to monitor Assessment & Plan (06/29/2023 9:09 AM MANAGER SECONDARY): Stable continue to monitor Vitamin d serum ordered Vit d sent to the pharmacy Assessment & Plan (12/02/2022 7:01 AM CDT): Stable continue to monitor Vitamin d serum ordered Assessment & Plan (10/30/2021 5:14 PM CDT): Stable continue to monitor Vitamin d serum ordered Assessment & Plan (09/28/2019 2:30 PM MANAGER SECONDARY): Check vitamin-D level Continue Vitamin D supplementation. [...] file Legal Sex Female 12:50 AM MANAGER SECONDARY Gender Identity Female 07/15/2021 11:49 AM MANAGER SECONDARY Sexual Orientation Not on file Last Filed Vital Signs Vital Sign Reading Time Taken Comments Blood Pressure 102/66 09/19/2024 6:08 PM MANAGER SECONDARY Pulse 84 09/19/2024 6:08 PM MANAGER SECONDARY Temperature 36.8 C (98.2 F) 09/19/2024 6:08 PM MANAGER SECONDARY Respiratory Rate 18 09/19/2024 6:08 PM MANAGER SECONDARY Oxygen Saturation 97% 09/19/2024 6:08 PM MANAGER SECONDARY Inhaled Oxygen Concentration - - Weight 60.2 kg (132 lb 12.8 oz) 09/19/2024 6:08 PM MANAGER SECONDARY Height 162.6 cm (5' 4 ) 09/19/2024 6:08 PM MANAGER SECONDARY Body Mass Index 22.8 09/19/2024 6:08 PM MANAGER SECONDARY Plan of Treatment Not on file Procedures Procedure Name Priority Date/Time Associated Diagnosis Comments POC INFLUENZA A/B, COVID-19 ANTIGEN Routine 09/19/2024 6:27 PM MANAGER SECONDARY Fever, unspecified fever cause POCT RAPID STREP Routine 09/19/2024 6:22 PM MANAGER SECONDARY Fever, unspecified fever cause POCT RAPID STREP Routine 07/31/2024 4:48 PM MANAGER SECONDARY Pharyngitis, unspecified etiology COVID-19 POC Routine 07/31/2024 4:48 PM MANAGER SECONDARY Flu-like symptoms POCT INFLUENZA A/B Routine 07/31/2024 4: 48 PM MANAGER SECONDARY Flu-like symptoms INFLUENZA A/B, RSV, AND COVID-19 PCR Routine 07/31/2024 3:30 PM MANAGER SECONDARY Flu-like symptoms DIAGNOSTIC MAMMOGRAM BILATERAL W JORGE Schedule Routine, Read Routine (OP Routine) 11/18/2023 12:48 PM CDT Screening mammogram, encounter for HEPATITIS C ANTIBODY Routine 04/04/2022 8:39 AM CDT Healthcare maintenance from Last 3 Months or Most Recently Relevant to Health Maintenance Results * POC Influenza A/B, COVID-19 antigen (09/19/2024 6:27 PM MANAGER SECONDARY) Pathologist [facility] Influenza A Ag, POC Negative Negative [facility] Influenza B Ag, POC Negative Negative [facility] COVID-19 Ag POC Presumptive Negative Presumptive Negative, Invalid [facility] Nasal 09/19/2024 6:27 PM MANAGER SECONDARY Kathryn Lindsay PULP MIXER POINT OF CARE TEST ORDERABLES Fi nal Result Performing Organization Address [facility] Phone Number [facility] [address] [place] [address], [place] * POCT rapid strep A (09/19/2024 6:22 PM MANAGER SECONDARY) [facility] Rapid Strep A, POC Negative Negative Swab 09/19/2024 6:22 PM MANAGER SECONDARY us Kathryn Lindsay PULP MIXER POINT OF CARE TEST ORDERABLES Fi nal Result * COVID-19 POC (07/31/2024 4:48 PM MANAGER SECONDARY) [facility] COVID-19 Ag POC (BD Veritor) Presumptive Negative Presumptive Negative, Invalid [facility] Nasal 07/31/2024 4:48 PM MANAGER SECONDARY us Kathryn Lindsay PULP MIXER POINT OF CARE TEST ORDERABLES Fi nal Result Performing Organization Address [facility] Phone Number [facility] [address] [place] [address], [place] * POCT influenza A/B (07/31/2024 4:48 PM MANAGER SECONDARY) [facility] Rapid Influenza A Ag Negative Negative, Invalid Rapid Influenza B Ag Negative Negative, Invalid Nasal 07/31/2024 4:48 PM MANAGER SECONDARY Kathryn Lindsay PULP MIXER POINT OF CARE TEST ORDERABLES Fi nal Result * POCT rapid strep A (07/31/2024 4:48 PM MANAGER SECONDARY) [facility] Rapid Strep A, POC Negative Negative Swab 07/31/2024 4:48 PM MANAGER SECONDARY Kathryn Lindsay NP POINT OF CARE TEST ORDERABLES Fi nal Result * Influenza A/B, RSV, and COVID-19 PCR Nasopharyngeal (07/31/2024 3:30 PM MANAGER SECONDARY) COVID-19 RNA Negative Negative Influenza A RNA Negative Negative [facility] Influenza B RNA Negative Negative [facility] RSV RNA Negative Negative [facility] Comment: Interpretive data: Testing performed by [facility]. This test is performed using the [employer] Xpert Xpress CoV-2/Flu/RSV plus assay. This is a multiplex, real-time reverse transcriptase PCR assay intended for the qualitative detection of nucleic acid from SARS-CoV-2, influenza A, influenza B, and respiratory syncytial virus. This assay has been cleared by the [place] Food and Drug administration. The performance characteristics have been verified by the [facility]. Results must be considered in the clinical context, and a negative result does not rule out infection. Interpretive Data last revised 2023 Nasopharyngeal 07/31/2024 3: 30 PM MANAGER SECONDARY 07/31/2024 10:34 PM MANAGER SECONDARY Narrative [facility] - 08/01/2024 12:09 AM MANAGER SECONDARY Is the Patient experiencing symptoms consistent with COVID?->Yes Reason for testing?->Symptomatic Is the patient experiencing any symptoms consistent with COVID (eg. Fever, cough, shortness of breath)?->Yes Kathryn Lindsay NP LAB MICROBIOLOGY - GENERAL ORDER ROSELYN Final Result [facility] [address] [place] [address] [place] * Diagnostic Mammogram Bilateral W Jorge (11/18/2023 [...] AM CDT) Hep C Ab Nonreactive Nonreactive [facility] MIR[facility]ONT[facility] ([place]) Comment: Interpretive Data Nonreactive: Antibodies [...] last revised on 2019. Testing performed by: [facility], [address] [place] [address]., [id number] Blood 04/04/2022 8:39 AM CDT 04/04/2022 11:28 AM CDT us Paola Baker MD LAB MICROBIOLOGY - NERAL ORDERABLES Final Result [facility] ([place]) 1 [facility] [place] [address] from Last 3 Months or Most Recently Relevant to Health Maintenance [place] [address] [facility] [place] [address] [place] [address] [facility] C[facility] Advance Directives For more information, please contact: [phone] * Full Code (Latest Code Status on File) Date Activated Date Inactivated Comments 08/17/2022 12:02 PM 08/19/2022 11:57 PM * Full Code Date Activated Date Inactivated Comments 12/16/2020 2:08 PM 12/16/2020 8:19 PM * Full Code Date Activated Date Inactivated Comments 04/05/2018 12:42 PM 04/06/2018 11:28 AM Care Teams Chemical Laboratory Scientist Relationship Specialty Start Date End Date Paola Baker MD [address] [place] [address] PCP - General Family Medicine 10/30/21
--- OUTSIDE RECORDS SUMMARY | 2024-09-20 19:27 | XMS_ITS | Clinical Summary ---
Author Organization [facility] Address [address] [place] [address] Phone Care Team Providers Care Clerical Office Worker Name Role Phone Paola Baker MD Primary Care Provide r Allergies Active Allergy Reactions Criticality Noted Date Comments Propoxyphene Nausea,Vomiting,Unknown Medium Oxycodone Vomiting Medium 04/29/2018 Medications azelastine (ASTELIN) 0.1 % Solution 1 [place] by Nasal route. Active FLUTICASONE PROPIONATE EX [...] 89 04/07/2024 9:30 AM CDT Temperature 36.7 C (98 F) 04/07/2024 9:30 AM CDT Respiratory Rate 16 [...] Relevant to Health [place] [id number] [facility] Care Teams Clerical Office Worker Relationship Specialty Start Date End Date Paola Baker MD [address] [facility] [place] [address] PCP - General Family Medicine 04/07/24
--- OUTSIDE RECORDS SUMMARY | 2024-09-20 19:27 | XMS_ITS | Encounter Summary ---
Author Organization [facility] Healthcare Address [address] [place] [address] Care Team Providers Care Store Mgr Name Role Phone Paola Baker MD Primary Care Provide r Reason for Visit * Reason Comments Sore Throat Patient presents tod ay with complaints of a sore throat, fatigue, nausea, fever and cough. Patient was exposed to Flu A. Sx onset yesterday morning. OTC Advil taken for relief. Encounter Details Date Type Department Care Team (Late st Contact Info) Description 09/19/2024 6:00 PM ADHESIVE BANDAGE MAKING OPERATOR Office Visit [facility] [place] [address] [place] [id number] Ofelia Morfin, LABORATORY OPERATIONS COORDINATOR [address] [facility] [address] Acute viral syndrome (Primary Dx); Fever, unspecified fever cause; Nausea Social History Tobacco Use Types Packs/Day Years Used Date Smoking Tobacco: Former E-cigarettes Quit: 08/2017 Smokeless Tobacco: Never Comments:ocassional vaping Alcohol Use Standard Drinks/Week Comments [...] on file Legal Sex Female 12:50 AM ADHESIVE BANDAGE MAKING OPERATOR Gender Identity Female 07/15/2021 11:49 AM ADHESIVE BANDAGE MAKING OPERATOR Sexual Orientation Not on file documented as of this encounter Last Filed Vital Signs Vital Sign Reading Time Taken Comments Blood Pressure 102/66 09/19/2024 6:08 PM ADHESIVE BANDAGE MAKING OPERATOR Pulse 84 09/19/2024 6:08 PM ADHESIVE BANDAGE MAKING OPERATOR Temperature 36.8 C (98.2 F) 09/19/2024 6:08 PM ADHESIVE BANDAGE MAKING OPERATOR Respiratory Rate 18 09/19/2024 6:08 PM ADHESIVE BANDAGE MAKING OPERATOR Oxygen Saturation 97% 09/19/2024 6:08 PM ADHESIVE BANDAGE MAKING OPERATOR Inhaled Oxygen Concentration - - Weight 60.2 kg (132 lb 12.8 oz) 09/19/2024 6:08 PM ADHESIVE BANDAGE MAKING OPERATOR Height 162.6 cm (5' 4 ) 09/19/2024 6:08 PM ADHESIVE BANDAGE MAKING OPERATOR Body Mass Index 22.8 09/19/2024 6:08 PM ADHESIVE BANDAGE MAKING OPERATOR documented in this encounter Patient Instructions * Patient Instructions* Ofelia Morfin NP - 09/19/2024 6:00 PM ADHESIVE BANDAGE MAKING OPERATOR Swabbed for COVID-19 today in clinic. Test result was negative. Flu and Strep also neg. Advised that this result may change, and to continue isolation until symptoms are gone. No signs of bacterial infection were noted. See attached guidelines for care care of viral syndrome. Importance of hydration for healthy immune system discussed. Continue safe practices of social distancing and mask wearing where appropriate - such as high riskareas. Zofran ordered for the nausea and so that you can increase water and fluids. Get f/u if symptoms worse or life threatening go to ER. SIVE BANDAGE MAKING OPERATOR SIVE BANDAGE MAKING OPERATOR * Attachments The following attachments cannot be sent through Care Everywhere. * Viral Syndrome (Tinsmith Helper) (Salvadorean) documented in this encounter Ordered Prescriptions Prescription Sig Dispense Quantity Refills Last Filled Start Date End Date ondansetron ODT (ZOFRAN-ODT) 4 mg disintegrating tabletIndications:Na usea Take 1 tablet (4 mg total) by mouth every 8 (eight) hours as needed for nausea or vomiting 20 tablet 09/19/2024 documented in this encounter Progress Notes * Ofelia Morfin, LABORATORY OPERATIONS COORDINATOR - 09/19/2024 6:00 PM CST Images from the original note were not included. Subjective/Objective Patient ID: Jocelyn Hood is a 44 y.o. female. Chief Complaint Sore Throat (Patient presents today with complaints of a sore throat, fatigue, nausea, fever and cough. Patient was exposed to Flu A. Sx onset yesterday morning. OTC Advil taken for relief. ) Highest fever 102. Cold sweats and too hot alternating. Nausea - requesting Zofran. Review of Systems All systems reviewed and are negative or noncontributory for this patient's presentation today other than stated in the HPI. Physical Exam Vitals reviewed. Constitutional: General: She is not in acute distress. Appearance: Normal appearance. She is ill-appearing. HENT: Right Ear: Tympanic membrane normal. Left Ear: Tympanic membrane normal. Nose: No congestion or rhinorrhea. Mouth/Throat: Pharynx: Posterior oropharyngeal erythema present. Tonsils: No tonsillar exudate or tonsillar abscesses. 0 on the right. 0 on the left. Eyes: Conjunctiva/sclera: Conjunctivae normal. Cardiovascular: Rate and Rhythm: Normal rate and regular rhythm. Heart sounds: Normal heart sounds. Pulmonary: Effort: Pulmonary effort is normal. No respiratory distress. Breath sounds: No wheezing, rhonchi or rales. Abdominal: Palpations: Abdomen is soft. Lymphadenopathy: Cervical: No cervical adenopathy. Skin: General: Skin is warm and dry. Findings: No rash. Neurological: Mental Status: She is alert and oriented to person, place, and time. GCS: GCS eye subscore is 4. GCS verbal subscore is 5. GCS motor subscore is 6. Psychiatric: Attention and Perception: Attention normal. Mood and Affect: Mood and affect normal. Behavior: Behavior normal. Behavior is cooperative. Vitals: 09/19/24 1808 BP: 102/66 BP Location: Right arm Patient Position: Sitting Pulse: 84 Resp: 18 Temp: 36.8 ??C (98.2 ??F) TempSrc: Oral SpO2: 97% Weight: 60.2 kg (132 lb 12.8 oz) Height: 162.6 cm (5' 4 ) Assessment/Plan Swabbed for COVID-19 today in clinic. Test result was negative. Flu and Strep also neg. Advised that this result may change, and to continue isolation until symptoms are gone. No signs of bacterial infection were noted. See attached guidelines for care care of viral syndrome. Importance of hydration for healthy immune system discussed. Continue safe practices of social distancing and mask wearing where appropriate - such as high riskareas. Zofran ordered for the nausea and so that you can increase water and fluids. Get f/u if symptoms worse or life threatening go to ER. Diagnoses and all orders for this visit: Acute viral syndrome (Primary) Fever, unspecified fever cause - POC Influenza A/B, COVID-19 antigen - POCT rapid strep A Nausea - ondansetron ODT (ZOFRAN-ODT) 4 mg disintegrating tablet; Take 1 tablet (4 mg total) by mouth every 8 (eight) hours as needed for nausea or vomiting Disposition- Discussed medications dosages, usage & potential side effects. Risks and interactions reviewed with patient. Indications for testing reviewed. Patient has been instructed to follow up w PCP or go to ER for any signs or symptoms that are of concern or worsening. Patient verbalizes understanding. The patient was given the opportunity to ask all questions and to have all questions answered. Patient is in agreement with the plan of care Ofelia Morfin NP SIVE BANDAGE MAKING OPERATOR documented in this encounter Plan of Treatment Not on file documented as of this encounter Procedures Procedure Name Priority Date/Time Associated Diagnosis Comments POC INFLUENZA A/B, COVID-19 ANTIGEN Routine 09/19/2024 6:27 PM ADHESIVE BANDAGE MAKING OPERATOR Fever, unspecified fever cause POCT RAPID STREP Routine 09/19/2024 6:22 PM ADHESIVE BANDAGE MAKING OPERATOR Fever, unspecified fever cause documented in this encounter Results * POC Influenza A/B, COVID-19 antigen (09/19/2024 6:27 PM ADHESIVE BANDAGE MAKING OPERATOR) Influenza A Ag, POC Negative Negative [facility] Influenza B Ag, POC Negative Negative [facility] COVID-19 Ag POC Presumptive Negative Presumptive Negative, Invalid [facility] Nasal 09/19/2024 6:27 PM ADHESIVE BANDAGE MAKING OPERATOR Kathryn Lindsay LABORATORY OPERATIONS COORDINATOR POINT OF CARE TEST ORDERABLES Fi nal Result [facility] [address] [place] [address], [facility] * POCT rapid strep A (09/19/2024 6:22 PM ADHESIVE BANDAGE MAKING OPERATOR) Rapid Strep A, POC Negative Negative Swab 09/19/2024 6:22 PM ADHESIVE BANDAGE MAKING OPERATOR Kathryn Lindsay LABORATORY OPERATIONS COORDINATOR POINT OF CARE TEST ORDERABLES Fi nal Result documented in this encounter Visit Diagnoses Diagnosis Acute viral syndrome- Primary Fever, unspecified fever cause Nausea Nausea alone documented in this encounter Additional Health Concerns Infection Onset Date Last Indicated Resolved Time COVID: Suspected 09/19/2024 09/19/2024 09/19/2024 6:30 PM ADHESIVE BANDAGE MAKING OPERATOR documented as of this encounter Care Teams Store Mgr Relationship Specialty Start Date End Date Paola Baker MD [address] [place] [address] DR SHAH [address] [place] [id number] PCP - General Family Medicine 10/30/21 documented as of this encounter
[2024-09-20 19:32] VITALS: BP 111/82; PULSE 77; RESP 16; TEMP 37.4; O2SAT 99
--- NOTE | 2024-09-20 21:24 | ED.URI ---
HPI - URI/Sore Throat General Chief Complaint: Upper Respiratory Infection Stated Complaint: Sore Throat Time Seen by Provider: 09/20/24 21:10 Source: patient, RN notes reviewed and old records reviewed Mode of arrival: ambulatory Limitations: no limitations History of Present Illness HPI Narrative: 44 year old female who presents to [facility] care with complaints of sore throat and white patches on her throat starting today with throat pain identified as 7/10 on pain scale. Patient reports that she has had some lethargy, fevers, felt sweaty and had dry cough for the past 3-4 days. Patient reports that she has had strep in the past and son at home with the flu. Patient reports that she has been taking Advil for her symptoms. MD elicited complaint: fever, cough, sore throat and other (felt lethargic) Onset (ago): day(s) (3-4 days of cough, fevers and lethargy, ST today) Pain scale (0-10): 7 Able to tolerate fluids by mouth: Yes Treatments prior to arrival: ibuprofen Related Data Home Medications ?Medication ?Instructions ?Recorded ?Confirmed ?Last Taken ?Type cyanocobalamin (vitamin B-12) mcg 07/11/24 Unknown History 1,000 mcg/mL injection solution Allergies Allergy/AdvReac Type Severity Reaction Status Date / Time acetaminophen (From AdvReac Nausea and Verified 09/20/24 19:45 Darvocet-N) Vomiting propoxyphene (From AdvReac Nausea and Verified 09/20/24 19:45 Darvocet-N) Vomiting Review of Systems Review of Systems: CONSTITUTIONAL: Reports malaise, chills, sweats, or fever. EYES: Denies visual changes, redness, or discharge. ENT: Reports rhinorrhea, congestion, no sinus pain,no otalgia and positive for sore throat. CARDIOVASCULAR: Denies chest pain, palpitations, or edema. RESPIRATORY: Reports cough.? Denies dyspnea. GASTROINTESTINAL: Denies abdominal pain, nausea, vomiting, diarrhea SKIN: Denies rash or itching. MUSCULOSKELETAL: Denies myalgia. NEUROLOGIC: Denies headache. All systems reviewed & are unremarkable except as noted in HPI and below PMFSH Past Medical History Medical History (Updated 09/23/24 @ 14:49 by Alivia Lepe NP) Pharyngitis Pernicious anemia Surgical History Surgical History History of hysterectomy Family History Family History Mother Family history non-contributory Social History Social History Smoking status: Current every day smoker Tobacco type: e-cigarettes/vaping Substance use: never Living arrangements: with family Gender identity (if verbalized by the patient): Female Spiritual care concerns: No Comments At time of signature, agree with nursing past medical, surgical, social and family history. There is no relevant family history pertinent to the presenting complaint Exam Narrative: GENERAL: Well-appearing, well-nourished, and in no acute distress. HEAD: Normocephalic EYES: PERRLA, conjunctivae clear ENT: Nares clear, turbinates edematous and erythematous, clear discharge. Mucous membranes moist. TM pearly shane with dull light reflex bilaterally; no tragal tenderness. Oropharynx erythematous without lesions. Tonsils red enlarged and with white exudate, no drooling, no hoarseness, no trismus, uvula midline.post nasal drinage noted NECK: Supple. No lymphadenopathy CHEST: Clear to auscultation, breath sounds equal. No wheezing, rhonchi, rales, or stridor. No respiratory distress, speaks in full sentences.cough SAO2 99% on room air HEART: Regular rate and rhythm. No murmur heard. SKIN: Warm, dry, no rash. NEURO: Alert and oriented x3. PSYCH: Normal mood and affect Course Course Emergency Course: Patient is aware of diagnosis, understands and agrees to treatment plan.? Anticipatory guidance given.? Patient agrees to follow-up as directed and is aware of reasons to seek care at the emergency department. Portions of this record may have been created with voice recognition software Level of Care: Express Care Visit Vital Signs Vital signs: Vital Signs Temperature 37.4 C 09/20/24 19:32 Pulse Rate 77 09/20/24 19:32 Respiratory Rate 16 09/20/24 19:32 Blood Pressure 111/82 09/20/24 19:32 Pulse Oximetry 99 09/20/24 19:32 Oxygen Delivery Room Air 09/20/24 19:32 Temperature 37.4 C 09/20/24 19:32 Pulse Rate 77 09/20/24 19:32 Respiratory Rate 16 09/20/24 19:32 Blood Pressure 111/82 09/20/24 19:32 Pulse Oximetry 99 09/20/24 19:32 Oxygen Delivery Room Air 09/20/24 19:32 Reviewed MDM - URI/Sore Throat MDM Narrative Medical decision making narrative: Differential diagnosis considered: Ambrocio virus, strep pharyngitis, allergic rhinitis, upper respiratory tract infection, sinusitis, rhinosinusitis, nasopharyngitis. viral pharyngitis, otitis media, otitis externa, pneumonia, bronchitis, viral cough syndrome, viral syndrome, and influenza.? Exam findings show no acute concerns or changes; patient is non-toxic appearing and is in no distress.? Patient is appropriate for outpatient treatment and follow-up. Differential Diagnosis Differential diagnosis: Likely upper respiratory infection, viral infection, influenza, pharyngitis and other (strep pharyngitis, tonsillitis) Medical Records Attestation: I reviewed the patient's medical records. Lab Data Attestation: I reviewed the patient's lab results. Lab results narrative: COVID antigen negative, Influenza A negative Influenza B negative, strep screen negative Labs: Lab Results 09/20/24 09/20/24 Range/Units 21:26 21:27 POC Influenza A Ag Negative (Negative) POC Influenza B Ag Negative (Negative) POC SARS CoV-2 Ag Negative (Negative) POC Grp A Strep Screen Negative (Negative) Critical Care Time Critical Care Time Critical Care Time: No Discharge Plan Discharge Clinical Impression: Exudative tonsillitis Patient Disposition: Home, Self-Care Condition: Stable Instructions: Antibiotic Form, Pharyngitis (ED) Additional Instructions: Increase fluids especially juices and water [id number]-kvf-[id number] cough and cold medicine of your choice for your symptoms Tylenol or ibuprofen for any fever pain heat to the face 20-30 minutes 4-6 times a day for pain Salt water gargles, throat lozenges or throat sprays as desired mrdication for nausea take as Rx . Take the entire course of antibiotics. Throw away your current toothbrush and begin using a new toothbrush in 48 hours in order to prevent re-infection. Sanitize all reusable water bottles . Do not share items with others. Salt water gargles may alleviate some of the throat discomfort. If your symptoms persist, change or worsen significantly before you can contact your personal physician then please, without delay, go to the emergency department for further evaluation. Follow-up with PCP in 7-10 days or sooner if needed Patient Language: Yi Prescriptions: New cefdinir 300 mg capsule 300 mg PO Q12H Qty: 20 0RF ondansetron 4 mg tablet,disintegrating 4 mg PO Q6H PRN (Reason: nausea and vomiting) Qty: 14 0RF No Action cyanocobalamin (vitamin B-12) 1,000 mcg/mL solution Follow-up/Referrals: PHYSICIAN NOT ON STAFF,NONSTAFF [Primary Care Provider] - Time of Disposition: 21:28 Quality Vianey Coma Scale Eyes: Open Verbal: Oriented and Alert Motor: Follows Commands Vianey Coma Total Score: 15
[2024-09-20 21:28] LABS: EDSTREPNEGPOS1 Negative (Negative)
[2024-09-20 21:29] LABS: EDINFLUASCREEN Negative (Negative); EDINFLUBSCREEN Negative (Negative)
[2024-09-20 21:29] LABS: EDCOVIDSCREEN Negative (Negative)
== END 2024-09-20 21:33 | disposition home or self-care (01) ==
PROVIDERS: Emergency Provider Registered Nurse
DX: J03.90 Acute tonsillitis, unspecified (principal); F17.290 Nicotine dependence, other tobacco product, uncomplicated; Z20.822 Contact with and (suspected) exposure to COVID-19
CPT/HCPCS: 87081; 87426; 87804; 87880; 99213; G0463

== ENCOUNTER 2025-04-07 17:10 | Emergency (ER) | payer OTHER, SELFPAY ==
--- OUTSIDE RECORDS SUMMARY | 2025-04-07 17:12 | XMS_ITS | Clinical Summary ---
Author Organization [facility] Address [address] [place] [address] Phone Care Team Providers Care Defense Attorney Name Role Phone Paola Baker MD Primary Care Provide r Allergies Active Allergy Reactions Criticality Noted Date Comments Propoxyphene Nausea,Vomiting,Unknown Medium Oxycodone Vomiting Medium 04/29/2018 Medications azelastine (ASTELIN) 0.1 % Solution 1 [place] by Nasal route. Active FLUTICASONE PROPIONATE EX [...] Wheezing or Cough. 8.5 g 9 Active valACYclovir (VALTREX) 1 GM Tablet Take 2 Tabs by mouth 2 times daily. 6 Tab 3 0 Active buprenorphine 8 MG SL Tablet DISSOLVE ONE T UNDER THE TONGUE TID 0 Active cyanocobalamin (VITAMIN B-12) 1000 MCG/ML Solution Inject Vitamin B12 1000mcg IM twice weekly on Mondays and X4 weeks then 1000mcg IM monthly thereafter. Dispense in 1mL vials 0 Active mirtazapine (REMERON) 15 MG Tablet TK 1 T PO HS 0 Active azithromycin (Zithromax Z-Hipolito) 250 MG TabletIndication s:Sore throat,Fever, unspecified fever cause 2 tab(s) daily for 1 day, then 1 tab(s) daily for days 2-5. 6 Tab 0 Active HYDROcodone-acet aminophen (NORCO) 5-325 MG TabletIndication s:Pharyngitis Take 1 Tablet by mouth every 8 hours as needed for Moderate or more severe pain. 12 Tablet 5 Active Active Problems Patient Care Coordination No [...] Sign Reading Time Taken Comments Blood Pressure 114/72 09/22/2024 10:46 AM MEDICAL PLANNER Pulse 80 09/22/2024 10:46 AM MEDICAL PLANNER Temperature 36.5 C (97.7 F) 09/22/2024 8:07 AM MEDICAL PLANNER Respiratory Rate 18 09/22/2024 10:46 AM MEDICAL PLANNER Oxygen Saturation 100% 09/22/2024 10:46 AM MEDICAL PLANNER Inhaled Oxygen Concentration - - Weight 59 kg (130 lb) 09/22/2024 8:07 AM MEDICAL PLANNER Height 162.6 cm (5' 4) 09/22/2024 8:07 AM MEDICAL PLANNER Body Mass Index 22.31 09/22/2024 8:07 AM MEDICAL PLANNER Plan of Treatment Health Maintenance Due Date Last Done Comments Hepatitis C Virus (HCV) Screening 1981 TdaP Immunization 1981 Hepatitis B Immunization (1 of 3 - 19+ 3-dose series) 2000 Human Papillomavirus (HPV) Immunization (1 - 3-dose SCDM series) 2008 SARS-COV-2 Immunization ( season) 2024 04/19/2021, 02/15/2021 Mammogram 11/17/2024 11/18/2023, 05/08/2017, 12/14/2017, Additional history exists Influenza Immunization (#1) 04/16/202505/16, 04/16/2022, 04/16/2021, Additional history exists Respiratory Syncytial Virus (RSV) Immunization (Adult) (1 - 1-dose 75+ series) 2056 Pneumococcal Immunization Combined Aged Out 09/06/2017 No longer eligible based on patient's age to complete this topic Discussion re Starting/Frequency of Mammograms Completed 11/18/2023, 12/14/2017, 12/14/2017, Additional history exists Meningococcal Immunization (ACWY) Aged Out No longer eligible based on patient's age to complete this topic Rotavirus Immunization Aged Out No lo nger eligible based on patient's age to complete this topic Procedures Procedure Name Priority Date/Time Associated Diagnosis Comments BRANDON DIAG BILATERAL DIGITAL W CAD W JANEEN Routine 12/14/2017 from Last 3 Months or Most Recently Relevant to Health Maintenance Results * BRNADON DIAG BILATERAL DIGITAL W CAD W JANEEN (12/14/2017) Anatomical Region Laterality Modality breast Bilateral Mammography us Not On File Provider IMG MAMMO ORDERABLES Final Result from Last 3 Months or Most Recently Relevant to Health [place] [id number] [facility] Care Teams Defense Attorney Relationship Specialty Start Date End Date Paola Baker MD [address] [facility] [place] [id number] PCP - General Family Medicine 04/07/24
--- OUTSIDE RECORDS SUMMARY | 2025-04-07 17:13 | XMS_ITS | Clinical Summary ---
Author Organization [facility] Healthcare Address [address] [place] [address] Care Team Providers Care Inspector Final Assembly Conveyor Line Name Role Phone Paola Baker MD Primary [...] by mouth daily 45 tablet 3 4 Active valACYclovir (VALTREX) 1 gram tablet TAKE 2 TABLETS(2000 MG) BY MOUTH TWICE DAILY FOR 1 DAY 4 tablet 4 Active ondansetron ODT (ZOFRAN-ODT) 4 mg disintegrating tabletIndications: Nausea Take 1 tablet (4 mg total) by mouth every 8 (eight) hours as needed for nausea or vomiting 20 tablet 5 Active cyanocobalamin (Vitamin B-12) 1,000 mcg/mL injection ADMINISTER 1 ML IN THE MUSCLE MONTHLY 3 mL 5 Active Active Problems Problem Noted Date [...] better Assessment & Plan (06/29/2023 9:09 AM SURGICAL CODER): Has not used alcohol since November She [...] months Assessment & Plan (09/22/2022 11:49 AM SURGICAL CODER): She is still going to her AA meetings and therapist. She has not had a drink since before she went to the hospital F/u in 3 months Assessment & Plan (08/25/2022 12:27 PM SURGICAL CODER): I recommend 1 month off for her [...] (10/11/2020): Added automatically from request for surgery [id number] Anemia 09/28/2019 Assessment & Plan (09/28/2019 1:50 PM SURGICAL CODER): Upper endoscopy with biopsies to check for H pylori and to exclude peptic ulcer disease Check CBC, iron, ferritin, vitamin B12, folate Change in bowel habits 09/28/2019 Assessment & Plan (09/28/2019 2:21 PM SURGICAL CODER): High-fiber diet daily. Citrucel 1 tablespoonful daily. Stay hydrated Colonoscopy Vitamin B12 deficiency 03/21/2019 Assessment & Plan (03/10/2024 12:37 PM CDT): Continue with b12 injections Assessment & Plan (12/02/2022 7:00 AM CDT): Continue with b12 injections Assessment & Plan (10/30/2021 5:14 PM CDT): Cbc and vitamin b12 ordered today Continue with b12 injections Assessment & Plan (09/28/2019 1:48 PM SURGICAL CODER): Check vitamin B12 level Family hx of colon cancer requiring screening co lonoscopy 03/21/2019 Vitamin D deficiency 04/29/2018 Assessment & Plan (03/10/2024 12:37 PM CDT): Stable continue to monitor Assessment & Plan (06/29/2023 9:09 AM SURGICAL CODER): Stable continue to monitor Vitamin d serum ordered Vit d sent to the pharmacy Assessment & Plan (12/02/2022 7:01 AM CDT): Stable continue to monitor Vitamin d serum ordered Assessment & Plan (10/30/2021 5:14 PM CDT): Stable continue to monitor Vitamin d serum ordered Assessment & Plan (09/28/2019 2:30 PM SURGICAL CODER): Check vitamin-D level Continue Vitamin D supplementation. [...] Alcohol withdrawal syndrome, uncomplicated 08/17/2022 03/13/2024 Immunizations Immunization Administration Dates Next Due Influenza, Trivalent, IM [...] on file Legal Sex Female 12:50 AM SURGICAL CODER Gender Identity Female 07/15/2021 11:49 AM SURGICAL CODER Sexual Orientation Not on file Obstetrics History Last Filed Vital Signs Vital Sign Reading Time Taken Comments Blood Pressure 102/66 09/19/2024 6:08 PM SURGICAL CODER Pulse 84 09/19/2024 6:08 PM SURGICAL CODER Temperature 36.8 C (98.2 F) 09/19/2024 6:08 PM SURGICAL CODER Respiratory Rate 18 09/19/2024 6:08 PM SURGICAL CODER Oxygen Saturation 97% 09/19/2024 6:08 PM SURGICAL CODER Inhaled Oxygen Concentration - - Weight 60.2 kg (132 lb 12.8 oz) 09/19/2024 6:08 PM SURGICAL CODER Height 162.6 cm (5' 4) 09/19/2024 6:08 PM SURGICAL CODER Body Mass Index 22.8 09/19/2024 6:08 PM SURGICAL CODER Plan of Treatment Health Maintenance Due Date Last Done Comments DTaP/Tdap/Td Vaccine (1 - Tdap) 1992 Hepatitis B Screening 1999 HPV Vaccines (1 - 3-dose SCDM series) 2008 Covid-19 Vaccine ( season) 2024 04/19/2021, 02/15/2021 Breast Cancer Screening-Mammogram 11/17/2024 11/18/2023, 12/14/2017, 12/14/2017, Additional history exists Depression Screening 03/13/2025 03/13/2024, 06/28/2023, 09/10/2022, Additional history exists Regular Well Visit/Exam 18-64 03/13/2025 03/13/2024, 12/03/2022, 10/30/2021 Influenza Vaccine (#1) 2025 3, 04/16/2022, 04/16/2021, Additional history exists Pneumococcal vaccine <65 Aged Out 09/06/2017 No longer eligible based on patient's age to complete this topic Hepatitis C Screening Completed 04/04/2022 Varicella Vaccines Discontinued Procedures Procedure Name Priority Date/Time Associated Diagnosis Comments DIAGNOSTIC MAMMOGRAM BILATERAL W JORGE Schedule Routine, Read Routine (OP Routine) 11/18/2023 12:48 PM CDT Screening mammogram, encounter for HEPATITIS C ANTIBODY Routine 04/04/2022 8:39 AM CDT Healthcare maintenance from Last 3 Months or Most Recently Relevant to Health Maintenance Results * Diagnostic Mammogram Bilateral W Jorge (11/18/2023 [...] last revised on 2019. Testing performed by: [facility], [address] [place] [address]., [id number] Blood 04/04/2022 8:39 AM CDT 04/04/2022 11:28 AM CDT Paola Baker MD LAB MICROBIOLOGY - [facility] NERAL ORDERABLES Final Result LEXI MIRAMONTES ([place]) [address] [facility] [place] [place] [address] from Last 3 Months or Most Recently Relevant to Health Maintenance Insurance [facility] [place] [address] [facility] [place] [address] [facility] [place] [address] Advance Directives For more information, please contact: [phone] * Full Code (Latest Code Status on File) Date Activated Date Inactivated Comments 08/17/2022 12:02 PM 08/19/2022 11:57 PM * Full Code Date Activated Date Inactivated Comments 12/16/2020 2:08 PM 12/16/2020 8:19 PM * Full Code Date Activated Date Inactivated Comments 04/05/2018 12:42 PM 04/06/2018 11:28 AM Care Teams Inspector Final Assembly Conveyor Line Relationship Specialty Start Date End Date Paola Baker MD [address] [facility] [place] [address] PCP - General Family Medicine 10/30/21
[2025-04-07 17:18] VITALS: BP 119/70; PULSE 84; RESP 16; TEMP 36.8; O2SAT 100
--- NOTE | 2025-04-07 17:21 | ED_ITS ---
HPI - URI/Sore Throat General Chief Complaint: Upper Respiratory Infection Stated Complaint: fever, sinus inf,liza, swollen throat Time Seen by Provider: 04/07/25 17:27 Source: patient and RN notes reviewed Mode of arrival: ambulatory Limitations: no limitations History of Present Illness HPI Narrative: 44-year-old female presents with concern for sinus congestion, pressure, headache and a sore throat. Reports symptoms started 2 weeks ago, got better after about for 5 days but then returned and was worse. She has been taking aspirin and ibuprofen. She reports intermittent fevers MD elicited complaint: nasal congestion and sinus pain Related Data Home Medications ?Medication ?Instructions ?Recorded ?Confirmed ?Last Taken ?Type cyanocobalamin (vitamin B-12) mcg 07/11/24 Unknown Hi story 1,000 mcg/mL injection solution Allergies Allergy/AdvReac Type Severity Reaction Status Date / Time acetaminophen (From AdvReac Nausea and Verified 04/07/25 17:22 Darvocet-N) Vomiting propoxyphene (From AdvReac Nausea and Verified 04/07/25 17:22 Darvocet-N) Vomiting Review of Systems Review of Systems: CONSTITUTIONAL: Reports malaise, intermittent fever. EYES: Denies visual changes, redness, or discharge. ENT: Reports rhinorrhea, congestion, sinus pain, and sore throat. CARDIOVASCULAR: Denies chest pain, palpitations, or edema. RESPIRATORY: Reports occasional cough. Denies dyspnea. GASTROINTESTINAL: Denies abdominal pain, nausea, vomiting, diarrhea SKIN: Denies rash or itching. MUSCULOSKELETAL: Denies myalgia. NEUROLOGIC: Reports headache. All systems reviewed & are unremarkable except as noted in HPI and below [facility] Past Medical History Medical History (Updated 04/07/25 @ 17:33 by Brit Tesfaye NP) Pharyngitis Pernicious anemia Surgical History Surgical History History of hysterectomy Family History Family History Mother Family history non-contributory Social History Social History Smoking status: Current every day smoker Tobacco type: e-cigarettes/vaping Substance use: never Living arrangements: with family Gender identity (if verbalized by the patient): Female Spiritual care concerns: No Comments At time of signature, agree with nursing past medical, surgical, social and family history. There is no relevant family history pertinent to the presenting complaint Exam Narrative: GENERAL: Well-appearing, well-nourished, and in no acute distress. HEAD: Normocephalic EYES: PERRLA, conjunctivae clear ENT: Nares clear, turbinates edematous and erythematous. Mucous membranes moist. TM pearly shane with dull light reflex bilaterally; no tragal tenderness. Oropharynx erythematous without lesions. Tonsils enlarged and without exudate, no drooling, no hoarseness, no trismus, uvula midline. NECK: Supple. No lymphadenopathy CHEST: Clear to auscultation, breath sounds equal. No wheezing, rhonchi, rales, or stridor. No respiratory distress, speaks in full sentences. HEART: Regular rate and rhythm. No murmur heard. SKIN: Warm, dry, no rash. NEURO: Alert and oriented x3. PSYCH: Normal mood and affect Course Course Emergency Course: Patient is aware of diagnosis, understands and agrees to treatment plan. Anticipatory guidance given. Patient agrees to follow-up as directed and is aware of reasons to seek care at the emergency department. Portions of this record may have been created with voice recognition software Level of Care: Express Care Visit Vital Signs Vital signs: Reviewed. MDM - URI/Sore Throat MDM Narrative Medical decision making narrative: Differential diagnosis considered: Ambrocio virus, strep pharyngitis, allergic rhinitis, upper respiratory tract infection, sinusitis, rhinosinusitis, nasopharyngitis. viral pharyngitis, otitis media, otitis externa, pneumonia, bronchitis, viral cough syndrome, viral syndrome, and influenza. Exam findings show no acute concerns or changes; patient is non-toxic appearing and is in no distress. Patient is appropriate for outpatient treatment and follow-up. Lab Data Attestation: I reviewed the patient's lab results. Critical Care Time Critical Care Time Critical Care Time: No Discharge Plan Discharge Clinical Impression: Sinusitis Patient Disposition: Home Condition: Stable Instructions: Sinusitis (ED) Additional Instructions: Take medication as prescribed Nonprescription pain medications, such as acetaminophen (eg, Tylenol) or ibuprofen (eg, Motrin, Advil), are recommended for pain. Flushing the nose and sinuses with a saline solution several times per day has been proven to decrease pain associated with congestion and shorten the duration of symptoms. Nasal steroids (such as Flonase, 2 sprays in each nostril daily) can help to reduce swelling inside the nose, usually within two to three days. These drugs have few side effects and relieve symptoms in most people. Oral decongestants (pseudoephedrine and phenylephrine) may be helpful if you have associated symptoms of ear pain or fullness. Nasal decongestant sprays, including oxymetazoline (Afrin) and phenylephrine (Durga-Synephrine), can be used to temporarily treat congestion. However, these sprays should not be used for more than two to three days due to the risk of rebound congestion (when the nose becomes congested constantly unless the medication is used repeatedly), possible addiction, and long-term consequences of frequent use, including persistent nasal dryness and crusting, which is very difficult to treat once it has developed. Medications to thin secretions (such as guaifenesin) may help to clear mucus. Please follow-up with your primary care doctor in the next 1-2 days. If you cannot follow-up with your primary care doctor please go to the ED for any urgent issues. If you have any worsening of symptoms or any other concerns please go to the ED immediately. Patient Language: Dutch Prescriptions: New methylprednisolone [Medrol (Hipolito)] 4 mg tablets,dose pack See Rx Instructions .ROUTE .COMPLEX Qty: 21 0RF Rx Instructions: orally per package directions amoxicillin-pot clavulanate 875-125 mg tablet 1 tablet PO Q12H 10 Days Qty: 20 0RF No Action cyanocobalamin (vitamin B-12) 1,000 mcg/mL solution Follow-up/Referrals: Olivia,MD Paola [Primary Care Provider, Unknown] Time of Disposition: 17:34
[2025-04-07 17:33] LABS: EDSTREPNEGPOS1 Negative (Negative)
--- NOTE | 2025-04-07 17:39 | PC.NURSE ---
No throat culture to be performed per Alhaji Tesfaye NP
== END 2025-04-07 17:38 | disposition home or self-care (01) ==
PROVIDERS: Emergency Provider Nurse Practitioner; PCP Family Medicine
DX: J32.9 Chronic sinusitis, unspecified (principal); F17.290 Nicotine dependence, other tobacco product, uncomplicated; D51.0 Vitamin B12 deficiency anemia due to intrinsic factor deficiency
CPT/HCPCS: 87880; 99213; G0463

== ENCOUNTER 2025-08-06 08:25 | Emergency (ER) | payer OTHER, SELFPAY ==
--- NOTE | 2025-08-06 08:29 | ED_ITS ---
HPI - Skin/Abscess/Foreign Bdy General Chief complaint: Skin/Abscess/Foreign Body Stated complaint: Rash Time Seen by Provider: 08/06/25 08:27 Source: patient Mode of arrival: ambulatory Limitations: no limitations History of Present Illness HPI narrative: Nightvinny is a 44-year-old female patient presenting to the clinic today with complaints of possible shingles to her right upper back. She reports she has had history of shingles before. States the rash started yesterday with a burning sensation in between her shoulder blades and she developed raised lesion that is painful. States this is just how her last episode of shingles started. Denies any chest pain or shortness of breath. No URI symptoms. No environmental changes. Related Data Allergies Allergy/AdvReac Type Severity Reaction Status Date / Time acetaminophen (From AdvReac Nausea and Verified 04/07/25 17:22 Darvocet-N) Vomiting propoxyphene (From AdvReac Nausea and Verified 04/07/25 17:22 Darvocet-N) Vomiting Review of Systems Review of Systems: Pertinent positives per HPI. Patient denies any fever, chills, headache, visual changes, dizziness, cough, runny nose, sore throat, shortness of breath, chest pain, palpitations, nausea, vomiting, diarrhea, constipation, abdominal pain, or any urinary issues. [facility] Past Medical History Medical History (Updated 08/06/25 @ 08:46 by Jose Reyes APRN) Pharyngitis Pernicious anemia Surgical History Surgical History History of hysterectomy Family History Family History Mother Family history non-contributory Social History Social History Smoking status: Current every day smoker Tobacco type: e-cigarettes/vaping Substance use: never Living arrangements: with family Gender identity (if verbalized by the patient): Female Spiritual care concerns: No Comments At the time of my signature, I reviewed and agree with the nursing past medical, surgical, social, and family history. There is no relevant family history pertinent to the patient complaint. Exam Narrative: General: Well-developed, well nourished, in no apparent distress Head: Normocephalic, atraumatic. Cardio: Regular rate and rhythm, s1 and s2 normal, no murmur appreciated. Resp: Clear to auscultation bilaterally, no rhonchi, rales, wheezing or rubs. Integumentary: [employer], warm, and dry, red raised painful papular vesicular lesion to the right upper back near the shoulder blade, tender to palpation Course Course Level of Care: Express Care Visit Vital Signs Vital signs: Vital Signs Temperature 37.1 C 08/06/25 08:35 Pulse Rate 84 08/06/25 08:35 Respiratory Rate 16 08/06/25 08:35 Blood Pressure 120/75 08/06/25 08:35 Pulse Oximetry 100 08/06/25 08:35 Oxygen Delivery Room Air 08/06/25 08:35 Temperature 37.1 C 08/06/25 08:35 Pulse Rate 84 08/06/25 08:35 Respiratory Rate 16 08/06/25 08:35 Blood Pressure 120/75 08/06/25 08:35 Pulse Oximetry 100 08/06/25 08:35 Oxygen Delivery Room Air 08/06/25 08:35 MDM MDM Narrative Medical decision making narrative: At the time of visit patient is resting comfortably on the exam table. Patient appears to be nontoxic. Complaints of possible shingles to her right upper back. She reports she has had history of shingles before. States the rash started yesterday with a burning sensation in between her shoulder blades and she developed raised lesion that is painful. States this is just how her last episode of shingles started. Denies any chest pain or shortness of breath. No URI symptoms. No environmental changes. Red raised painful papular vesicular lesion to the right upper back near the shoulder blade, tender to palpation Plan: I suspect patient has the start of herpes zoster. Prescription for Valtrex was sent to the pharmacy. Supportive measures were discussed with the patient and they voiced understanding discharge instructions and agrees to treatment plan. Return precautions reviewed Differential Diagnosis Differential Diagnosis: Cellulitis, shingles, skin infection, abscess, eczema Discharge Plan Discharge Clinical Impression: Shingles rash Qualifiers: Herpes zoster complications: without complications Qualified Code(s): B02.9 - Zoster without complications Patient Disposition: Home Condition: Stable Instructions: Antibiotic Form, Shingles (ED) Additional Instructions: Take Valtrex as prescribed Keep covered if open and draining-this is considered contagious until it has scabbed over or has resolved Avoid being around any person's, immunocompromised persons, or anyone who has not had the chickenpox vaccine. Avoid scratching as this can cause a secondary infection May take benadryl 25-50mg every 6 hours as needed for itching. May apply lidocaine patch to the affected area to help alleviate pain May take Tylenol/ibuprofen as needed for pain as per bottle directions Follow up with your PCP in 3-5 days if symptoms persist or sooner if they worsen Go to the Emergency Room if symptoms worsen- fever, rash spreading with treatment, shortness of breath, tongue swelling, drooling, or chest pain Patient Language: Togolese Prescriptions: New valacyclovir [Valtrex] 1 gram tablet 1,000 mg PO Q8H 7 Days Qty: 21 0RF Follow-up/Referrals: UNKNOWN,DOCTOR [Primary Care Provider] Time of Disposition: 08:45 Quality NIHSS Nursing Documentation ED NIHSS nursing documentation: reviewed/agree
[2025-08-06 08:35] VITALS: BP 120/75; PULSE 84; RESP 16; TEMP 37.1; O2SAT 100
--- OUTSIDE RECORDS SUMMARY | 2025-08-06 08:44 | XMS_ITS | Clinical Summary ---
Author Organization [facility] Address [address] [place] [address] Phone Care Team Providers Care Software Test Technician Name Role Phone Paola Baker MD Primary Care Provide r Allergies Active Allergy Reactions Criticality Noted Date Comments Propoxyphene Nausea,Vomiting,Unknown Medium Oxycodone Vomiting Medium 04/29/2018 Medications azelastine (ASTELIN) 0.1 % Solution 1 [place] by Nasal route. Active FLUTICASONE PROPIONATE EX [...] more severe pain. 12 Tablet 5 Active naproxen (NAPROSYN) 500 MG Tablet Take 1 Tablet by mouth 2 times daily as needed for Moderate or more severe pain. 20 Tablet 5 Active Active Problems Patient Care [...] Years Used Date Smoking Tobacco: Former Cigarettes 0 Q uit: 07/16/2017 Smokeless Tobacco: Never Tobacco [...] Sign Reading Time Taken Comments Blood Pressure 118/63 04/24/2025 2:17 PM CDT Pulse 78 04/24/2025 2:17 PM CDT Temperature 36.9 C (98.4 F) 04/24/2025 2:17 PM CDT Respiratory Rate 16 04/24/2025 2:17 PM CDT Oxygen Saturation 100% 04/24/2025 2:17 PM CDT Inhaled Oxygen Concentration - - Weight 58.6 kg (129 lb 3 oz) 04/24/2025 2:17 PM CDT Height 162.6 cm (5' 4) 04/24/2025 2:17 PM CDT Body Mass Index 22.18 04/24/2025 2:17 PM CDT Plan of Treatment Health Maintenance Due Date Last Done Comments Hepatitis C Virus (HCV) Screening 1981 TdaP Immunization 1981 Varicella Immunization (1 of 2 - 13+ 2-dose series) 1994 Hepatitis B Immunization (1 of 3 - 19+ 3-dose series) 2000 Mammogram 11/17/2024 11/18/2023, 0508/2017, 12/14/2017, Additional history exists Influenza Immunization (#1) 04/16/202505/16, 04/16/2022, 04/16/2021, Additional history exists SARS-COV-2 Immunization ( - season) 2025 04/19/2021, 02/15/2021 Respiratory Syncytial Virus (RSV) Immunization (Adult) (1 - 1-dose 75+ series) 2056 Pneumococcal Immunization Combined Aged Out 09/06/2017 No longer eligible based on patient's age to complete this topic Discussion re Starting/Frequency of Mammograms Completed 11/18/2023, 12/14/2017, 12/14/2017, Additional history exists Human Papillomavirus (HPV) Immunization (No Doses Required) Completed Meningococcal Immunization (ACWY) Aged Out No longer [...] Recently Relevant to Health Maintenance Insurance [address] [place], [place] [id number] [place] [address] Care Teams Software Test Technician Relationship Specialty Start Date End Date Paola aBker MD [address] [place] [address] PCP - General Family Medicine 04/07/24
--- OUTSIDE RECORDS SUMMARY | 2025-08-06 08:44 | XMS_ITS | Clinical Summary ---
Author Organization Formerly [facility] Address [address] [place] [id number] Care Team Providers Care Parimutuel Ticket Seller Name Role Phone Sami Elizalde MD Primary Care Provi brianna Allergies Active Allergy Reactions Criticality Noted Date Comments Propoxyphene-Acetaminop hen Nausea only,Vomiting Low Reaction: NAUSEA, VOMITING, Oxycodone Vomiting Medium 04/29/2018 Propoxyphene Nausea only,Unknown,Vomitin g Medium 08/05/2019 Medications syringe with needle, safety (BD Integra Syringe) 3 mL 25 gauge x 1 syringe USE TO INJECT VITAMIN B12 IN THE MUSCLE DIRECTED 3 each 3 3 Active ergocalciferol (VITAMIN D) 50,000 unit [...] MUSCLE DIRECTED 3 each 2 4 Active ARIPiprazole (ABILIFY) 5 mg tablet Take 1 tablet (5 mg total) by mouth nightly 90 tablet 3 5 Active traZODone (DESYREL) 100 mg tabletIndications: insomnia associated with depression Take 1 tablet (100 mg total) by mouth nightly 90 tablet 3 5 Active cyanocobalamin (Vitamin B-12) 1,000 mcg/mL injectionIndicatio ns:Pernicious Anemia ADMINISTER 1 ML IN THE MUSCLE MONTHLY 3 mL 11 5 Active Active Problems Problem Noted Date Diagnosed Date Personal history of colonic polyps 12/16/2020 Overview (12/16/2020): Repeat colonoscopy in 2 years (December 2022) for polyp surveillance. Paternal uncle had colon cancer diagnosed in his 50s. Two day colonoscopy prep next time or an extra dose of MiraLax and Gatorade prep next time. Vitamin B12 deficiency 03/21/2019 Assessment & Plan (06/14/2025 10:17 AM CDT): Prescription refilled for B12 shots. Continue monthly Assessment & Plan (03/10/2024 12:37 PM CDT): Continue with b12 injections Assessment & Plan (12/02/2022 7:00 AM CDT): Continue with b12 injections Assessment & Plan (10/30/2021 5:14 PM CDT): Cbc and vitamin b12 ordered today Continue with b12 injections Assessment & Plan (09/28/2019 1:48 PM ORGAN RECOVERY COORDINATOR): Check vitamin B12 level Family hx of colon cancer requiring screening co lonoscopy 03/21/2019 Vitamin D deficiency 04/29/2018 Assessment & Plan (03/10/2024 12:37 PM CDT): Stable continue to monitor Assessment & Plan (06/29/2023 9:09 AM ORGAN RECOVERY COORDINATOR): Stable continue to monitor Vitamin d serum ordered Vit d sent to the pharmacy Assessment & Plan (12/02/2022 7:01 AM CDT): Stable continue to monitor Vitamin d serum ordered Assessment & Plan (10/30/2021 5:14 PM CDT): Stable continue to monitor Vitamin d serum ordered Assessment & Plan (09/28/2019 2:30 PM ORGAN RECOVERY COORDINATOR): Check vitamin-D level Continue Vitamin D supplementation. Chronic midline low back pain 09/03/2017 Seasonal allergic rhinitis due to pollen 017 Resolved Problems Problem Noted Date Diagnosed Date Resolved Date BMI 22.0-22.9, adult 03/13/2024 025 Tachycardia 03/13/2024 06/14/2025 Assessment & Plan (03/13/2024 4:56 PM CDT): New concern Worsening Will get a 48hr holter monitor Will check her electrolytes along with tsh Start metoprolol 12.5mg daily since she is symptomatic F/u in 2 weeks If she is unable to tolerate the metoprolol because of her already borderline blood pressure, will refer to cardiology History of alcohol use disorder 08/25/2022 06/14/2025 Assessment & Plan (03/13/2024 4:58 PM CDT): stable Continue with sisters in sobriety in group She is doing much better Assessment & Plan (06/29/2023 9:09 AM ORGAN RECOVERY COORDINATOR): Has not used alcohol since November She [...] months Assessment & Plan (09/22/2022 11:49 AM ORGAN RECOVERY COORDINATOR): She is still going to her AA meetings and therapist. She has not had a drink since before she went to the hospital F/u in 3 months Assessment & Plan (08/25/2022 12:27 PM ORGAN RECOVERY COORDINATOR): I recommend 1 month off for her to establish with the program and get a few meetings before returning back to her work as her job is a trigger for alcohol use. F/u in 1 month for re-evaluation Alcohol withdrawal syndrome, uncomplicated 08/17/2022 03/13/2024 Perimenopausal 10/30/2021 06/14/2025 Assessment & Plan (10/30/2021 5:17 PM CDT): Ordered estradiol level prolactin levels fsh lh Stable continue to monitor Encounter for wellness examination 10/30/2021 06/14/2025 Assessment & Plan (03/10/2024 12:38 PM CDT): [...] has a hysterectomy F/u in 1 year Absolute anemia 10/11/2020 06/14/2025 Overview (10/11/2020): Added automatically from request for surgery [id number] Anemia 09/28/2019 06/14/2025 Assessment & Plan (09/28/2019 1:50 PM ORGAN RECOVERY COORDINATOR): Upper endoscopy with biopsies to check for H pylori and to exclude peptic ulcer disease Check CBC, iron, ferritin, vitamin B12, folate Change in bowel habits 09/28/201906/14 Assessment & Plan (09/28/2019 2:21 PM ORGAN RECOVERY COORDINATOR): High-fiber diet daily. Citrucel 1 tablespoonful daily. Stay hydrated Colonoscopy Excessive and frequent menst ruation with regular cycle 03/31/2018 06/14/2025 Chronic fatigue 09/03/2017 06/14/2025 Myalgia 09/03/2017 06/14/2025 Situational anxiety 09/03/2017 06/14/20 25 Assessment & Plan (10/30/2021 5:16 PM CDT): Controlled given circumstances Continue to monitor Sleep paralysis, recurrent isolated 09/03/2017 06/14/2025 Depression 07/05/2017 06/14/2025 Assessment & Plan (06/14/2025 10:17 AM CDT): Patient's mood is good with the Abilify. Continue and monitor Assessment & Plan (03/10/2024 12:38 PM CDT): Stable / clinically quiescent. Will continue to monitor. Continue following with psychiatry Assessment & Plan (12/03/2022 9:33 AM CDT): Stable / clinically quiescent. Will continue to monitor. continue mirtazapine 15 mg at night Continue following with psychiatry Chronic tonsillitis 11/27/2016 06/14/20 25 Lymphadenopathy, cervical 11/27/2016 Recurrent bleeding 11/27/2016 5 Encounters Date Type Department Care Team Description 06/14/2025 8:00 AM CDT Office Visit [facility] [address] [facility] [address] [place] [address] Sami Elizalde MD Moderate episode of recurrent major depressive disorder (HCC) (Primary Dx); Encounter for screening mammogram for malignant neoplasm of breast; Alcohol use disorder, severe, in early remission (HCC); Vitamin B12 deficiency; Pernicious anemia 05/10/2025 3:16 PM CDT - 05/10/2025 5:26 PM CDT Emergency [address] [address] Kameron Peter MD Acute bilateral back pain, unspecified back location (Primary Dx); Neck pain; Alcohol abuse Discharge Disposition: Discharge to home or self care from Last 3 Months Immunizations Immunization Administration Dates Next Due Influenza, Trivalent, IM (MDV) 07/29/2016 Influenza, Trivalent, Preser vative Free, Intramuscular 07/27/2017 Influenza, Unspecified 06/14/2025(Deferr ed: Patient Refused),05/31/2023,09/10/2022(Deferre d: Patient Refused),04/16/2022,03/16/2022(Deferre d: Patient Refused),04/16/2021,07/29/2016 Pneumococcal Polysaccharide [...] points, staff should administer the PHQ-9) 0 06/14/2025 Personal Safety Answer Date Recorded Have you ever been in or are you currently in a harmful physical or emotional relationship or is someone making you feel afraid or unsafe? Denies 05/10/2025 Comments No Sex and Gender Information Value Date Recorded Sex Assigned at Not on file Legal Sex Female 12:50 AM ORGAN RECOVERY COORDINATOR Gender Identity Female 07/15/2021 11:49 AM ORGAN RECOVERY COORDINATOR Sexual Orientation Not on file Last Filed Vital Signs Vital Sign Reading Time Taken Comments Blood Pressure 106/74 06/14/2025 8:13 AM CDT Pulse 88 06/14/2025 8:13 AM CDT Temperature 37 C (98.6 F) 05/10/2025 1:30 PM CDT Respiratory Rate 18 06/14/2025 8:13 AM CDT Oxygen Saturation 98% 06/14/2025 8:13 AM CDT Inhaled Oxygen Concentration - - Weight 61.2 kg (135 lb) 06/14/2025 8:13 AM CDT Height 162.6 cm (5' 4) 06/14/2025 8:13 AM CDT Body Mass Index 23.17 06/14/2025 8:13 AM CDT Plan of Treatment Health Maintenance Due Date Last Done Comments DTaP/Tdap/Td Vaccine (1 - Tdap) 1992 Hepatitis B Screening 1999 HPV Vaccines (1 - 3-dose SCD M series) 2008 Pneumococcal vaccine <65 (2 of 2 - PCV) 09/06/2018 09/06/2017 Breast Cancer Screening-Mammogram 11/17/2024 11/18/2023, 12/14/2017, 12/14/2017, Additional history exists Regular Well Visit/Exam 18-64 03/13/2025, 12/03/2022, 10/30/2021 Covid-19 Vaccine (3 - 2024-2 6 season) 2025 04/19/2021, 02/15/2021 Influenza Vaccine (#1) 2025 , 04/16/2022, 04/16/2021, Additional history exists Depression Screening 06/14/2026 06/14/2025, 03/13/2024, 06/28/2023, Additional history exists Hepatitis C Screening Completed 04/04/2022 Varicella Vaccines Discontinued Procedures Procedure Name Priority Date/Time Associated Diagnosis Comments EGFR STAT 05/10/2025 4:02 PM CDT HCG, BLOOD, QUANTITATIVE STAT 05/10/2025 4:02 PM CDT DIFFERENTIAL AUTO STAT 05/10/2025 4:0 2 PM CDT PHOSPHORUS STAT 05/10/2025 4:02 PM CDT MAGNESIUM STAT 05/10/2025 4:02 PM CDT CREATINE KINASE (CK), TOTAL STAT 05/10/2025 4:02 PM CDT COMPREHENSIVE METABOLIC PANEL STAT 05/10/2025 4:02 PM CDT CBC WITH AUTO DIFFERENTIAL STAT 05/10/2025 4:[address] LUMBAR SPINE WO CONTRAST ED 05/10/2025 2:[address] THORACIC SPINE WO CONTRAST ED 05/10/2025 2:[address] FACIAL BONES WO CONTRAST ED 05/10/2025 2:[address] CERVICAL SPINE WO CONTRAST ED 05/10/2025 2:[address] HEAD WO CONTRAST ED 05/10/2025 2 :18 PM CDT DIAGNOSTIC MAMMOGRAM BILATERAL W JORGE Schedule Routine, Read Routine (OP Routine) 11/18/2023 12:48 PM CDT Screening mammogram, encounter for HEPATITIS C ANTIBODY Routine 04/04/2022 8:39 AM CDT Healthcare maintenance from Last 3 Months or Most Recently Relevant to Health Maintenance Results * eGFR (05/10/2025 4:02 PM CDT) eGFR 81 >=60 mL/min/1. 73 m2 Comment: Interpretive Data Reference Interval Normal >/= 90 mL/min/1.73m2 Mildly decreased* 60 - 89 mL/min/1.73m2 Mildly to moderately decreased 45 - 59 mL/min/1.73m2 Moderately to severely decreased 30 - 44 mL/min/1.73m2 Severely decreased 15 - 29 mL/min/1.73m2 Kidney Failure < 15 mL/min/1.73m2 *Relative to young adult level Estimated glomerular filtration rate is determined by the 2020 CKD-EPI equation recommended by the National Kid[employer] (A Unifying Approach to GFR Estimation: Recommendations of the NKF-ASK Task Force on Reassessing the Inclusion of Race in Diagnosing Kidney Disease, JASN 2020). The CKD-EPI equation should not be used for patients with unstable renal function and has not been validated in children and those over 70. Current interpretive data was last reviewed 2021. Blood 05/10/2025 4:02 PM CDT 05/10/2025 4:13 PM CDT us Kameron Peter MD LAB BLOOD ORDERABLES Final Result [facility] [address] [facility] [place] [address] * (ABNORMAL) Differential, auto (05/10/2025 4:02 PM CDT) Pathologist [facility] Neutrophil abs 5.07 1.50 - 6.50 K/cumm Imm gran abs 0.03 0.00 - 0.10 K/cumm [facility] Lymphocyte abs 3.46(H) 0.80 - 3.30 K/cumm [facility] Monocyte abs 0.64 0.20 - 0.80 K/cumm [facility] Eosinophil abs 0.03 0.00 - 0.50 K/cumm [facility] Basophil abs 0.03 0.00 - 0.10 K/cumm [facility] Neutrophil pct 54.8 % [facility] Comment: Interpretive Data Percent cell count reference ranges are not reported, since discordance with absolute values may lead to misinterpretation of CBC data. Current Interpretive Data was last revised on 2017. Imm gran pct 0.3 % [facility] Comment: Interpretive Data Percent cell count reference ranges are not reported, since discordance with absolute values may lead to misinterpretation of CBC data. Current Interpretive Data was last revised on 2017. Lymphocyte pct 37.4 % [facility] Comment: Interpretive Data Percent cell count reference ranges are not reported, since discordance with absolute values may lead to misinterpretation of CBC data. Current Interpretive Data was last revised on 2017. Monocyte pct 6.9 % [facility] Comment: Interpretive Data Percent cell count reference ranges are not reported, since discordance with absolute values may lead to misinterpretation of CBC data. Current Interpretive Data was last revised on 2017. Eosinophil pct 0.3 % [facility] Comment: Interpretive Data Percent cell count reference ranges are not reported, since discordance with absolute values may lead to misinterpretation of CBC data. Current Interpretive Data was last revised on 2017. Basophil pct 0.3 % [facility] Comment: Interpretive Data Percent cell count reference ranges are not reported, since discordance with absolute values may lead to misinterpretation of CBC data. Current Interpretive Data was last revised on 2017. Blood 05/10/2025 4:02 PM CDT 05/10/2025 4:13 PM CDT us Kameron Peter MD LAB BLOOD ORDERABLES Final Result [place] [id number] [facility] [place] [address] * CBC with auto differential (05/10/2025 4:02 PM CDT) WBC 9.26 3.80 - 9.90 K/cumm Hgb 13.1 11.9 - 15.5 g/dL [facility] Hct 39.2 35.6 - 45.5 % [facility] Plt 305 150 - 400 K/cumm [facility] MPV 9.5 9.1 - 12.3 fL [facility] RBC 4.23 3.90 - 5.20 M/cumm [facility] MCV 92.7 81.3 - 96.4 fL [facility] MCH 31.0 27.1 - 33.3 pg [facility] MCHC 33.4 32.3 - 35.7 g/dL [facility] RDW CV 12.3 11.1 - 14.9 % [facility] RDW SD 41.8 35.7 - 48.1 fL [facility] NRBC abs 0.00 0.00 - 0.01 K/cumm [facility] Blood 05/10/2025 4:02 PM CDT 05/10/2025 4:13 PM CDT Kameron Peter MD LAB BLOOD ORDERABLES Final Result Performing Organization Address [facility] de Phone Number [address] [place] [address] * hCG, blood, quantitative (05/10/2025 4:02 PM CDT) [facility] hCG, quant <5.0 0.0 - 5.0 IUnits/L Comment: Interpretive Data Male: < 5 IU/L Non- premenopausal Female: <5 IU/L The [employer] hCG Beta Quant assay procedure was used. Results from different manufacturers or methods may not be comparable. Serial testing should be performed using the same method. Interpretive Data was last revised on 2023 Blood 05/10/2025 4:02 PM CDT 05/10/2025 4:13 PM CDT Kameron Peter MD LAB BLOOD ORDERABLES Final Result Performing Organization Address [facility] de Phone Number [address] [address] * Phosphorus (05/10/2025 4:02 PM CDT) [facility] Phosphorus, pl 3.2 2.3 - 4.5 mg/dL Blood 05/10/2025 4:02 PM CDT 05/10/2025 4:13 PM CDT Kameron Peter MD LAB BLOOD ORDERABLES Final Result Performing Organization Address [facility] Co de Phone Number [address] [address] * Magnesium (05/10/2025 4:02 PM CDT) [facility] Magnesium 2.2 1.4 - 2.5 mg/dL Blood 05/10/2025 4:02 PM CDT 05/10/2025 4:13 PM CDT Kameron Peter MD LAB BLOOD ORDERABLES Final Result Performing Organization Address [facility] Co de Phone Number [address] [place] [address] * Creatine kinase (CK), total (05/10/2025 4:02 PM CDT) [facility] CK 109 30 - 200 Units/L Blood 05/10/2025 4:02 PM CDT 05/10/2025 4:13 PM CDT Kameron Peter MD LAB BLOOD ORDERABLES Final Result Performing Organization Address [facility] de Phone Number [address] [address] * Comprehensive metabolic panel (05/10/2025 4:02 PM CDT) [facility] Sodium 141 135 - 145 mmol/L Potassium, pl 3.9 3.3 - 4.9 mmol/L [facility] Comment:Hemolyzed; Potassium value may be falsely elevated by as much as 1.0 mmol/L. Suggest redraw and reanalysis. Chloride 104 97 - 110 mmol/L [facility] CO2 26 22 - 32 mmol/L [facility] Anion gap 11 2 - 15 mmol/L [facility] BUN 22 6 - 25 mg/dL [facility] Creatinine 0.90 0.60 - 1.10 mg/dL [facility] Glucose 109 70 - 199 mg/dL [facility] Comment: Interpretive Data Fasting glucose >/= 126 mg/dl is diagnostic for diabetes. Fasting is defined as no caloric intake for at least 8 hours. Fasting glucose between 100 mg/dl to 125 mg/dl is diagnostic of prediabetes. In a patient with classic symptoms of hyperglycemia or hyperglycemic crisis, a random glucose >/= 200 mg/dl is diagnostic for diabetes. In the absence of unequivocal hyperglycemia, results should be confirmed by repeat testing. The classification and Diagnosis of Diabetes Diabetes Care 2021; 46: S19-S40. Current interpretive data was last revised 2022. Calcium 9.4 8.5 - 10.3 mg/dL [facility] Bilirubin, total 0.2 0.1 - 1.2 mg/dL [facility] Protein, pl 6.9 6.5 - 8.5 g/dL [facility] Albumin 4.4 3.5 - 5.0 g/dL [facility] Alk phos 81 40 - 130 Units/L [facility] ALT 16 7 - 45 Units/L [facility] AST 24 10 - 45 Units/L [facility] Blood 05/10/2025 4:02 PM CDT 05/10/2025 4:13 PM CDT us Kameron Peter MD LAB BLOOD ORDERABLES Final Result Performing Organization Address City/State/[facility] Co hi Phone Number [facility] [address] [facility] [place] [address] * CT Lumbar Spine WO Contrast (05/10/2025 2:18 PM CDT) Anatomical Region Laterality Modality Spine N/A Computed Tomogra phy 05/10/2025 2:39 PM CDT Narrative 05/10/2025 2:42 PM CDT EXAM DESCRIPTION: CT LUMBAR SPINE WO CONTRAST REASON FOR STUDY: Back trauma, no prior imaging (Age >= 16y) Pt fell last night, Pt had abrasion and hematoma to L side of forehead with bruising to L eye and tenderness to orbital area. Pt also has bruising to under chin area as well. Pt is also c/o pain with palpation to neck and mid/lower back. TECHNIQUE: Axial images acquired through the lumbar spine without intravenous contrast. Reconstructed coronal and sagittal MPR images reviewed. All images stored on PACS. Automated exposure control was used as a dose optimization technique for this examination. COMPARISON: CT lumbar spine 08/25/2022. FINDINGS: SEGMENTATION: 5 [id number] lumbar vertebral bodies. ALIGNMENT: Normal. VERTEBRAE: No fracture. Vertebral heights well-maintained. DISC HEIGHT: Disc height maintained. There is very mild broad-based disc bulge at L5-S1. HARDWARE: None in the spine. INDIVIDUAL DISC LEVELS: No significant osseous spinal canal or neural foraminal stenosis. VISUALIZED RIBS: No fractures. SOFT TISSUES: No significant or acute finding in adjacent soft tissues. OTHER: No other significant finding. IMPRESSION: No acute osseous abnormality. THIS IS AN ELECTRONICALLY VERIFIED FINAL REPORT 05/10/2025 2:42 PM - Electronically signed by Dragan Morrison M.D. T: Report ID: [id number] Reading Location: [place] [address] Procedure Note Dragan Morrison MD - 05/10/2025 EXAM DESCRIPTION: CT LUMBAR SPINE WO CONTRAST REASON FOR STUDY: Back trauma, no prior imaging (Age >= 16y) Pt fell last night, Pt had abrasion and hematoma to L side of foreheadwith bruising to L eye and tenderness to orbital area. Pt also hasbruising to under chin area as well. Pt is also c/o pain with palpation to neckand mid/lower back. TECHNIQUE: Axial images acquired through the lumbar spine withoutintravenous contrast. Reconstructed coronal and sagittal MPR images reviewed. Allimages stored on PACS. Automated exposure control was used as a dose optimization technique forthis examination. COMPARISON: CT lumbar spine 08/25/2022. FINDINGS: SEGMENTATION: 5 [id number] lumbar vertebral bodies. ALIGNMENT: Normal. VERTEBRAE: No fracture. Vertebral heights well-maintained. DISC HEIGHT: Disc height maintained. There is very mild broad-baseddisc bulge at L5-S1. HARDWARE: None in the spine. INDIVIDUAL DISC LEVELS: No significant osseous spinal canal or neural foraminal stenosis. VISUALIZED RIBS: No fractures. SOFT TISSUES: No significant or acute finding in adjacent soft tissues. OTHER: No other significant finding. IMPRESSION: No acute osseous abnormality. THIS IS AN ELECTRONICALLY VERIFIED FINAL REPORT 05/10/2025 2:42 PM - Electronically signed by Dragan Morrison M.D. T: Report ID: [id number] Reading Location: [place] [address] [address] [facility] CT PROCEDURES Final Resul t * CT Thoracic Spine WO Contrast (05/10/2025 2:18 PM CDT) Anatomical Region Laterality Modality Spine N/A Computed Tomogra phy 05/10/2025 2:42 PM CDT Narrative 05/10/2025 2:48 PM CDT EXAM DESCRIPTION: CT THORACIC SPINE WO CONTRAST REASON FOR STUDY: Back trauma, no prior imaging (Age >= 16y) Pt fell last night, Pt had abrasion and hematoma to L side of forehead with bruising to L eye and tenderness to orbital area. Pt also has bruising to under chin area as well. Pt is also c/o pain with palpation to neck and mid/lower back. TECHNIQUE: Axial images acquired through the thoracic spine without intravenous contrast. Images reviewed with lung, soft tissue and bone windows. Reconstructed coronal and sagittal MPR images reviewed. Images stored on PACS. Automated exposure control was used as a dose optimization technique for this examination. COMPARISON: None. FINDINGS: ALIGNMENT: Normal. VERTEBRAE: No fracture. Vertebral body height well-maintained. There is incomplete segmentation of the posterior elements C4-5. DISC HEIGHT: Well-maintained. HARDWARE: None in the spine. THORACIC DISCS T1-T12: No significant osseous spinal stenosis or neuroforaminal stenosis. SOFT TISSUES: No soft tissue masses. LOWER CERVICAL: Incompletely imaged. No significant osseous spinal stenosis or osseous foraminal stenosis. UPPER LUMBAR: Incompletely imaged. No significant osseous spinal or osseous neuroforaminal stenosis. OTHER: No other significant abnormality. IMPRESSION: No acute osseous abnormality of the thoracic spine. THIS IS AN ELECTRONICALLY VERIFIED FINAL REPORT 05/10/2025 2:48 PM - Electronically signed by Dragan Morrison M.D. T: Report ID: [id number] Reading Location: [id number] Procedure Note Dragan Morrison MD - 05/10/2025 EXAM DESCRIPTION: CT THORACIC SPINE WO CONTRAST REASON FOR STUDY: Back trauma, no prior imaging (Age >= 16y) Pt fell last night, Pt had abrasion and hematoma to L side of foreheadwith bruising to L eye and tenderness to orbital area. Pt also hasbruising to under chin area as well. Pt is also c/o pain with palpation to neckand mid/lower back. TECHNIQUE: Axial images acquired through the thoracic spine without intravenous contrast. Images reviewed with lung, soft tissue and bone windows. Reconstructed coronal and sagittal MPR images reviewed. Images stored on PACS. Automated exposure control was used as a dose optimization technique for this examination. COMPARISON: None. FINDINGS: ALIGNMENT: Normal. VERTEBRAE: No fracture. Vertebral body height well-maintained. Thereis incomplete segmentation of the posterior elements C4-5. DISC HEIGHT: Well-maintained. HARDWARE: None in the spine. THORACIC DISCS T1-T12: No significant osseous spinal stenosis or neuroforaminal stenosis. SOFT TISSUES: No soft tissue masses. LOWER CERVICAL: Incompletely imaged. No significant osseous spinalstenosis or osseous foraminal stenosis. UPPER LUMBAR: Incompletely imaged. No significant osseous spinal orosseous neuroforaminal stenosis. OTHER: No other significant abnormality. IMPRESSION: No acute osseous abnormality of the thoracic spine. THIS IS AN ELECTRONICALLY VERIFIED FINAL REPORT 05/10/2025 2:48 PM - Electronically signed by Dragan Morrison M.D. T: Report ID: [id number] Reading Location: [id number] CT PROCEDURES Final Resul t * CT Cervical Spine WO Contrast (05/10/2025 2:18 PM CDT) Anatomical Region Laterality Modality Spine N/A Computed Tomogra phy 05/10/2025 2:51 PM CDT Narrative 05/10/2025 2:53 PM CDT EXAM DESCRIPTION: CT CERVICAL SPINE WO CONTRAST REASON FOR STUDY: Neck trauma, uncomplicated (NEXUS/CCR neg) (Age 16-64y) Pt fell last night, Pt had abrasion and hematoma to L side of forehead with bruising to L eye and tenderness to orbital area. Pt also has bruising to under chin area as well. Pt is also c/o pain with palpation to neck and mid/lower back. TECHNIQUE: Axial images through the cervical spine with sagittal and coronal reformatted images. Automated exposure control was used as a dose optimization technique for this examination. COMPARISON: None. FINDINGS: ALIGNMENT: Maintained AP alignment. DISCS: Disc heights relatively well-maintained. VERTEBRAE: No acute fracture identified. Vertebral body heights are maintained. Facets align normally. HARDWARE: None in the spine. INDIVIDUAL DISC LEVELS: No significant osseous spinal canal or neural foraminal stenosis. UPPER THORACIC: Incompletely imaged with no significant abnormality. SKULL BASE: No significant abnormality. LUNG APICES: No significant abnormality. NECK SOFT TISSUES: No significant abnormality. OTHER: No other significant abnormality. IMPRESSION: No acute osseous abnormality of the cervical spine. THIS IS AN ELECTRONICALLY VERIFIED FINAL REPORT 05/10/2025 2:53 PM - Electronically signed by Dragan Morrison M.D. T: Report ID: [id number] Reading Location: [place] [address] Procedure Note Dragan Morrison MD - 05/10/2025 EXAM DESCRIPTION: CT CERVICAL SPINE WO CONTRAST REASON FOR STUDY: Neck trauma, uncomplicated (NEXUS/CCR neg) ([id number]) Pt fell last night, Pt had abrasion and hematoma to L side of foreheadwith bruising to L eye and tenderness to orbital area. Pt also hasbruising to under chin area as well. Pt is also c/o pain with palpation to neckand mid/lower back. TECHNIQUE: Axial images through the cervical spine with sagittal andcoronal reformatted images. Automated exposure control was used as a doseoptimization technique for this examination. COMPARISON: None. FINDINGS: ALIGNMENT: Maintained AP alignment. DISCS: Disc heights relatively well-maintained. VERTEBRAE: No acute fracture identified. Vertebral body heights are maintained. Facets align normally. HARDWARE: None in the spine. INDIVIDUAL DISC LEVELS: No significant osseous spinal canal or neural foraminal stenosis. UPPER THORACIC: Incompletely imaged with no significant abnormality. SKULL BASE: No significant abnormality. LUNG APICES: No significant abnormality. NECK SOFT TISSUES: No significant abnormality. OTHER: No other significant abnormality. IMPRESSION: No acute osseous abnormality of the cervical spine. THIS IS AN ELECTRONICALLY VERIFIED FINAL REPORT 05/10/2025 2:53 PM - Electronically signed by Cayugafabrice Morrison M.D. T: Report ID: [id number] Reading Location: [id number] [facility] CT PROCEDURES Final Resul t * CT Facial Bones WO Contrast (05/10/2025 2:18 PM CDT) Anatomical Region Laterality Modality Head and Neck N/A Computed Tomogra phy 05/10/2025 2:48 PM CDT Narrative 05/10/2025 2:52 PM CDT EXAM DESCRIPTION: CT FACIAL BONES WO CONTRAST REASON FOR STUDY: Facial trauma, blunt Pt fell last night, Pt had abrasion and hematoma to L side of forehead with bruising to L eye and tenderness to orbital area. Pt also has bruising to under chin area as well. Pt is also c/o pain with palpation to neck and mid/lower back. TECHNIQUE: Noncontrast computed tomography images through the paranasal sinuses. Reconstructed MPR images reviewed. All images stored on PACS. Automated exposure control was used as a dose optimization technique for this examination. COMPARISON: None. FINDINGS: BONES: Mandibular condyles are normally position in the glenoid fossa. There is no acute mandibular fracture. The zygomatic arches and zygomaticomaxillary sutures are intact. The tapia of the maxilla appear intact. No acute nasal bone fracture. Orbital tapia intact. Dental caries are noted of the left posterior mandibular molars. SOFT TISSUES: There is left forehead and supraorbital mild soft tissue swelling. SINUSES: The included paranasal sinuses are predominantly clear. NASAL CAVITY: Relatively midline nasal septum. ORBITS: Orbits are unremarkable. TMJ: Mandibular condyles normally position. MASTOIDS: Mastoid air cells predominantly clear. BRAIN: See separate brain CT dictation. OTHER: No other significant finding. IMPRESSION: 1. No evidence of an acute facial bone fracture. 2. Left forehead and supraorbital soft tissue swelling. THIS IS AN ELECTRONICALLY VERIFIED FINAL REPORT 05/10/2025 2:52 PM - Electronically signed by Dragan Morrison M.D. T: Report ID: [id number] Reading Location: [id number] Procedure Note Dragan Morrison MD - 05/10/2025 EXAM DESCRIPTION: CT FACIAL BONES WO CONTRAST REASON FOR STUDY: Facial trauma, blunt Pt fell last night, Pt had abrasion and hematoma to L side of foreheadwith bruising to L eye and tenderness to orbital area. Pt also hasbruising to under chin area as well. Pt is also c/o pain with palpation to neckand mid/lower back. TECHNIQUE: Noncontrast computed tomography images through the paranasal sinuses. Reconstructed MPR images reviewed. All images stored on PACS. Automated exposure control was used as a dose optimization technique forthis examination. COMPARISON: None. FINDINGS: BONES: Mandibular condyles are normally position in theglenoid fossa. There is no acute mandibular fracture. The zygomatic arches and zygomaticomaxillary sutures are intact. The tapia of the maxilla appear intact. No acute nasal bone fracture. Orbital tapia intact. Dentalcaries are noted of the left posterior mandibular molars. SOFT TISSUES: There is left forehead and supraorbital mild soft tissue swelling. SINUSES: The included paranasal sinuses are predominantly clear. NASAL CAVITY: Relatively midline nasal septum. ORBITS: Orbits are unremarkable. TMJ: Mandibular condyles normally position. MASTOIDS: Mastoid air cells predominantly clear. BRAIN: See separate brain CT dictation. OTHER: No other significant finding. IMPRESSION: 1. No evidence of an acute facial bone fracture. 2. Left forehead and supraorbital soft tissue swelling. THIS IS AN ELECTRONICALLY VERIFIED FINAL REPORT 05/10/2025 2:52 PM - Electronically signed by Dragan Morrison M.D. T: Report ID: [id number] Reading Location: [id number] [address] CT PROCEDURES Final Resul t * CT Head WO Contrast (05/10/2025 2:18 PM CDT) Anatomical Region Laterality Modality Head and Neck N/A Computed Tomogra phy 05/10/2025 2:34 PM CDT Narrative 05/10/2025 2:39 PM CDT EXAM DESCRIPTION: CT HEAD WO CONTRAST REASON FOR STUDY: Head trauma, moderate-severe Pt fell last night, Pt had abrasion and hematoma to L side of forehead with bruising to L eye and tenderness to orbital area. Pt also has bruising to under chin area as well. Pt is also c/o pain with palpation to neck and mid/lower back. TECHNIQUE: Axial images acquired through the brain without intravenous contrast. Images stored on PACS. Automated exposure control was used as a dose optimization technique for this examination. COMPARISON: None. FINDINGS: BRAIN: No acute intraparenchymal hemorrhage, cerebral edema, hydrocephalus, mass, or mass effect. EXTRA-AXIAL SPACES: No extra-axial fluid collection or mass. CALVARIUM: No acute skull base or calvarial abnormality. SINUSES/MASTOIDS: Predominantly clear. ORBITS: No significant abnormality. OTHER: Small area of soft tissue swelling offset of the left forehead scalp. IMPRESSION: 1. No evidence of an acute intracranial abnormality. 2. Small area of soft tissue swelling of the left forehead scalp. THIS IS AN ELECTRONICALLY VERIFIED FINAL REPORT 05/10/2025 2:39 PM - Electronically signed by Dragan Morrison M.D. T: Report ID: [id number] Reading Location: [place] [address] Procedure Note Dragan Morrison MD - 05/10/2025 EXAM DESCRIPTION: CT HEAD WO CONTRAST REASON FOR STUDY: Head trauma, moderate-severe Pt fell last night, Pt had abrasion and hematoma to L side of foreheadwith bruising to L eye and tenderness to orbital area. Pt also hasbruising to under chin area as well. Pt is also c/o pain with palpation to neckand mid/lower back. TECHNIQUE: Axial images acquired through the brain without intravenous contrast. Images stored on PACS. Automated exposure control was used asa dose optimization technique for this examination. COMPARISON: None. FINDINGS: BRAIN: No acute intraparenchymal hemorrhage, cerebral edema,hydrocephalus, mass, or mass effect. EXTRA-AXIAL SPACES: No extra-axial fluid collection or mass. CALVARIUM: No acute skull base or calvarial abnormality. SINUSES/MASTOIDS: Predominantly clear. ORBITS: No significant abnormality. OTHER: Small area of soft tissue swelling offset of the left foreheadscalp. IMPRESSION: 1. No evidence of an acute intracranial abnormality. 2. Small area of soft tissue swelling of the left forehead scalp. THIS IS AN ELECTRONICALLY VERIFIED FINAL REPORT 05/10/2025 2:39 PM - Electronically signed by Dragan Morrison M.D. T: Report ID: [id number] Reading Location: [place] [address] PROCEDURES Final Resul t * Diagnostic Mammogram Bilateral W Jorge (11/18/2023 [...] last revised on 2019. Testing performed by: [facility], [address] [place] [address]., [id number] Blood 04/04/2022 8:39 AM CDT 04/04/2022 11:28 AM CDT Paola Baker MD LAB MICROBIOLOGY - [facility] ORDERABLES Final Result LEXI KULWINDER ([place]) 1 [facility] Department [place] [address] from Last 3 Months or Most Recently Relevant to Health Maintenance [place] [id number] [facility] [place] [id number] [facility] [place] [id number] [facility] [place] [phone] Advance Directives For more information, please contact: [phone] * Full Code (Latest Code Status on File) Date Activated Date Inactivated Comments 08/17/2022 12:02 PM 08/19/2022 11:57 PM * Full Code Date Activated Date Inactivated Comments 12/16/2020 2:08 PM 12/16/2020 8:19 PM * Full Code Date Activated Date Inactivated Comments 04/05/2018 12:42 PM 04/06/2018 11:28 AM Care Teams Parimutuel Ticket Seller Relationship Specialty Start Date End Date Sami Elizalde MD [address] [address] PCP - General Family Medicine 06/14/25
== END 2025-08-06 08:57 | disposition home or self-care (01) ==
PROVIDERS: Emergency Provider Nurse Practitioner Family; PCP Family Medicine
DX: B02.9 Zoster without complications (principal); F17.290 Nicotine dependence, other tobacco product, uncomplicated
CPT/HCPCS: 99213; G0463

== ENCOUNTER 2025-08-10 11:35 | Emergency (ER) | payer OTHER, SELFPAY ==
--- OUTSIDE RECORDS SUMMARY | 2025-08-10 11:38 | XMS_ITS | Clinical Summary ---
Author Organization [facility] Address [address] [place] [id number] Care Team Providers Care Latexer Name Role Phone Sami Elizalde MD Primary [...] injections Assessment & Plan (09/28/2019 1:48 PM ELECTRONIC WARFARE SPECIALIST): Check vitamin B12 level Family hx of colon cancer requiring screening co lonoscopy 03/21/2019 Vitamin D deficiency 04/29/2018 Assessment & Plan (03/10/2024 12:37 PM CDT): Stable continue to monitor Assessment & Plan (06/29/2023 9:09 AM ELECTRONIC WARFARE SPECIALIST): Stable continue to monitor Vitamin d serum ordered Vit d sent to the pharmacy Assessment & Plan (12/02/2022 7:01 AM CDT): Stable continue to monitor Vitamin d serum ordered Assessment & Plan (10/30/2021 5:14 PM CDT): Stable continue to monitor Vitamin d serum ordered Assessment & Plan (09/28/2019 2:30 PM ELECTRONIC WARFARE SPECIALIST): Check vitamin-D level Continue Vitamin D supplementation. [...] better Assessment & Plan (06/29/2023 9:09 AM ELECTRONIC WARFARE SPECIALIST): Has not used alcohol since November She [...] months Assessment & Plan (09/22/2022 11:49 AM ELECTRONIC WARFARE SPECIALIST): She is still going to her AA meetings and therapist. She has not had a drink since before she went to the hospital F/u in 3 months Assessment & Plan (08/25/2022 12:27 PM ELECTRONIC WARFARE SPECIALIST): I recommend 1 month off for her [...] (10/11/2020): Added automatically from request for surgery [id number] Anemia 09/28/2019 06/14/2025 Assessment & Plan (09/28/2019 1:50 PM ELECTRONIC WARFARE SPECIALIST): Upper endoscopy with biopsies to check for H pylori and to exclude peptic ulcer disease Check CBC, iron, ferritin, vitamin B12, folate Change in bowel habits 09/28/201906/14 Assessment & Plan (09/28/2019 2:21 PM ELECTRONIC WARFARE SPECIALIST): High-fiber diet daily. Citrucel 1 tablespoonful daily. [...] 25 Lymphadenopathy, cervical 11/27/2016 Recurrent bleeding 11/27/2016 Encounters Date Type Department Care Team Description 06/14/2025 8:00 AM CDT Office Visit [facility] Family Medicine [address] [id number] Sami Elizalde MD Moderate episode of recurrent major depressive disorder (HCC) (Primary Dx); Encounter for screening mammogram for malignant neoplasm of breast; Alcohol use disorder, severe, in early remission (HCC); Vitamin B12 deficiency; Pernicious anemia from Last 3 Months Immunizations Immunization Administration [...] on file Legal Sex Female 12:50 AM ELECTRONIC WARFARE SPECIALIST Gender Identity Female 07/15/2021 11:49 AM ELECTRONIC WARFARE SPECIALIST Sexual Orientation Not on file Last Filed [...] last revised on 2019. Testing performed by: [facility], [address] [place] [address], [place]., [address] Blood 04/04/2022 8:39 AM CDT 04/04/2022 11:28 AM CDT Paola Baker MD LAB MICROBIOLOGY - [facility] ORDERABLES Final Result [facility] ([place]) 1 [facility] Department [place] [address] from Last 3 Months or Most Recently Relevant to Health [place] [id number] [place] [id number] [place] [id number] [place] [id number] Advance Directives For more information, please contact: [phone] * Full Code (Latest Code Status on File) Date Activated Date Inactivated Comments 08/17/2022 12:02 PM 08/19/2022 11:57 PM * Full Code Date Activated Date Inactivated Comments 12/16/2020 2:08 PM 12/16/2020 8:19 PM * Full Code Date Activated Date Inactivated Comments 04/05/2018 12:42 PM 04/06/2018 11:28 AM Care Teams Latexer Relationship Specialty Start Date End Date Sami Elizalde MD [address] [address] PCP - General Family Medicine 06/14/25
--- OUTSIDE RECORDS SUMMARY | 2025-08-10 11:38 | XMS_ITS | Clinical Summary ---
Author Organization [facility] Address [address] [place] [address] Phone Care Team Providers Care Vault Installer Name Role Phone Paola Baker MD Primary Care Provide r Allergies Active Allergy Reactions Criticality Noted Date Comments Propoxyphene Nausea,Vomiting,Unknown Medium Oxycodone Vomiting Medium 04/29/2018 Medications azelastine (ASTELIN) 0.1 % Solution 1 [place] by Nasal route. Active FLUTICASONE PROPIONATE EX [...] Recently Relevant to Health Maintenance Insurance [address] [place], [place] [id number] [place] [address] Care Teams Vault Installer Relationship Specialty Start Date End Date Paola Baker MD [address] [facility] [place] [place] [address] PCP - General Family Medicine 04/07/24
[2025-08-10 11:39] VITALS: BP 96/65; PULSE 84; RESP 16; TEMP 37.3; O2SAT 100
--- OUTSIDE RECORDS SUMMARY | 2025-08-10 11:40 | XMS_ITS ---
Author Organization Unknown ENCOUNTERS Encounter Performer Location Date Diagnosis Diagnosis Status Emergency [facility] [address] [place] [address] [id number] RTN Inpatient [facility] [address] [address] [id number] RTN Lab [address] [address] [id number] [address]patient [address] [address] [id number] *Note: Encounters from your own facility or health system may be excluded. Allergies, Adverse Reactions, Alerts Allergen Type Severity Identification Date Medications Name Date Quantity Days Supplied [facility] Number
--- NOTE | 2025-08-10 11:59 | ED_ITS ---
HPI - URI/Sore Throat General Chief Complaint: Upper Respiratory Infection Stated Complaint: Sore Throat Time Seen by Provider: 08/10/25 11:45 Source: patient Mode of arrival: ambulatory Limitations: no limitations History of Present Illness HPI Narrative: Jocelyn is a 44-year-old female patient presenting to the clinic today with complaints of sore throat, body aches, chills, and white patches to the back of her throat x2 days. She reports her son and niece both have strep. Denies any nasal drainage. Denies any chest pain or shortness of breath. Related Data Allergies Allergy/AdvReac Type Severity Reaction Status Date / Time acetaminophen (From AdvReac Nausea and Verified 08/10/25 11:49 Darvocet-N) Vomiting propoxyphene (From AdvReac Nausea and Verified 08/10/25 11:49 Darvocet-N) Vomiting Review of Systems Review of Systems: Pertinent positives per HPI. Patient denies any rash, headache, visual changes, dizziness, cough, shortness of breath, chest pain, palpitations, nausea, vomiting, diarrhea, constipation, abdominal pain, or any urinary issues. [facility] Past Medical History Medical History (Updated 08/10/25 @ 12:00 by Jose Reyes APRN) Pharyngitis Pernicious anemia Surgical History Surgical History History of hysterectomy Family History Family History Mother Family history non-contributory Social History Social History Smoking status: Current every day smoker Tobacco type: e-cigarettes/vaping Substance use: never Living arrangements: with family Gender identity (if verbalized by the patient): Female Spiritual care concerns: No Comments At the time of my signature, I reviewed and agree with the nursing past medical, surgical, social, and family history. There is no relevant family history pertinent to the patient complaint. Exam Narrative: General: Well-developed, well nourished, in no apparent distress Head: Normocephalic, atraumatic Eyes: Pupils equally round and reactive to light bilaterally, EOM intact, sclera and conjunctive clear, no discharge, lids normal Ears: TMs intact and clear, ear canals clear, no drainage, grossly hearing normal. Nose: Nares patent, no discharge, no inflammation, no sinus tenderness. Mouth: Oral pharynx red with mild tonsillar enlargement without lesions or masses, good dentition, MMM. Neck: Supple, trachea midline, enlargement of anterior cervical nodes, no thyroid masses or goiter palpable. Cardio: Regular rate and rhythm, s1 and s2 normal, no murmur appreciated. Resp: Clear to auscultation bilaterally, no rhonchi, rales, wheezing or rubs Course Course Level of Care: Express Care Visit Vital Signs Vital signs: Vital Signs Temperature 37.3 C 08/10/25 11:39 Pulse Rate 84 08/10/25 11:39 Respiratory Rate 16 08/10/25 11:39 Blood Pressure 96/65 L 08/10/25 11:39 Pulse Oximetry 100 08/10/25 11:39 Oxygen Delivery Room Air 08/10/25 11:39 Temperature 37.3 C 08/10/25 11:39 Pulse Rate 84 08/10/25 11:39 Respiratory Rate 16 08/10/25 11:39 Blood Pressure 96/65 L 08/10/25 11:39 Pulse Oximetry 100 08/10/25 11:39 Oxygen Delivery Room Air 08/10/25 11:39 MDM MDM Narrative Medical decision making narrative: At the time of visit patient is resting comfortably on the exam table. Patient appears to be nontoxic. Complaints of sore throat, body aches, chills, and white patches to the back of her throat x2 days. She reports her son and niece both have strep. Denies any nasal drainage. Denies any chest pain or shortness of breath. On exam patient has bilateral TMs intact and clear, no nasal drainage, oral pharynx red with mild tonsillar enlargement with cervical lymphadenopathy, exudate noted to the right tonsil, heart rates regular rate and rhythm, lung sounds are clear. Strep test was ordered. Labs: Strep test was negative in the clinic today. Plan: I suspect patient has exudative pharyngitis. Patient has had exposure to strep at home. Centor criteria is 4/[address]. [address] the patient on amoxicillin. Supportive measures were discussed with the patient and they voiced understanding discharge instructions and agrees to treatment plan. Return precautions reviewed Differential Diagnosis Differential Diagnosis: Differential diagnostic considerations for upper respiratory infection include upper respiratory infection, croup, otitis media, sinusitis, viral infection, bronchitis, influenza, pharyngitis, strep, uvulitis. Lab Data Labs: Lab Results 08/10/25 Range/Units 12:03 POC Grp A Strep Screen Negative (Negative) Discharge Plan Discharge Clinical Impression: Exudative pharyngitis Patient Disposition: Home Condition: Stable Instructions: Antibiotic Form, Pharyngitis (ED) Additional Instructions: Strep test was negative. Take prescription medications only as prescribed-amoxicillin Increase fluids and stay well hydrated May take Tylenol or motrin as directed on bottle for pain/fever May use Flonase 1 spray in each nare daily May take OTC antihistamines such as Zyrtec or Claritin daily as directed on bottle May apply Vicks vapor rub to chest to open sinuses Sinus rinses for congestion Cepacol spray, cough drops, throat lozenges, warm tea with honey/lemon, gargle salt water to soothe throat BRAT diet for diarrhea Clear liquids x 24 hours then advance as tolerated for nausea/vomiting Go to the ED if you develop a worsening in your condition- high fever not controlled by Tylenol or Motrin, dehydration, weakness, lethargy, shortness of breath, or chest pain. Follow up with your PCP in 3-5 days if symptoms persist. Patient Language: Niuean Prescriptions: New amoxicillin 875 mg tablet 875 mg PO Q12H 10 Days Qty: 20 0RF No Action valacyclovir [Valtrex] 1 gram tablet 1,000 mg PO Q8H 7 Days Qty: 21 0RF Follow-up/Referrals: UNKNOWN,DOCTOR [Primary Care Provider] Time of Disposition: 12:01 Quality NIHSS Nursing Documentation ED NIHSS nursing documentation: reviewed/agree
[2025-08-10 12:05] LABS: EDSTREPNEGPOS1 Negative (Negative)
== END 2025-08-10 12:06 | disposition home or self-care (01) ==
PROVIDERS: Emergency Provider Nurse Practitioner Family
DX: J02.9 Acute pharyngitis, unspecified (principal); F17.290 Nicotine dependence, other tobacco product, uncomplicated
CPT/HCPCS: 87880; 99213; G0463